=== PATIENT | male | born 1940 | race Caucasian/White ===

== ENCOUNTER 2022-01-23 10:22 | Emergency (ER) | payer OTHER, SELFPAY ==
[2022-01-23] VITALS (23 sets, daily range): BP systolic 75–210; BP diastolic 63–119; PULSE 64–78; RESP 18; TEMP 37; O2SAT 93–98; BMI 31.6
--- NOTE | 2022-01-23 11:04 | CRLHL7_ITS ---
For Patients: As a result of the Century Cures Act, medical imaging exams and procedure reports are released immediately into your electronic medical record. You may view this report before your referring provider. If you have questions, please contact your health care provider. Indication: Chest Pain Comparison: None available Technique: PA and lateral views of the chest Findings: There is hyperinflation and chronic interstitial change with basilar atelectasis and parenchymal scar. There is no dense consolidation, effusion or pneumothorax. The cardiac silhouette is mildly prominent. The bony thorax is grossly intact. Impression: Hyperinflation and chronic interstitial change with minimal basilar atelectasis and/or parenchymal scar. Dictated by Douglas Clifton MD @ 01/23/2022 1:23:25 PM (Electronically Signed)
[2022-01-23] MEDS: ASPIRIN 81 MG TAB.CHEW 162 MG PO ×2 (11:12→11:18)
[2022-01-23 11:19] LABS: Basophils Percent Auto 0.2 % (0.0-3.0); Eosinophils Percent Auto 1.1 % (0.0-7.0); Hematocrit 44.2 % (37.0-53.0); Hemoglobin* 14.4 gm/dL (13.5-17.5); Immature Granulocytes Pct Auto 0.9 %; Lymphocytes Percent Auto 12.2 % (20-44); Mean Corpuscular HGB Conc 33 gm/dL (32-36); Mean Corpuscular Hemoglobin 28 pg (26-34); Mean Corpuscular Volume 87 fL (80-100); Monocytes Percent Auto 8.4 % (0.0-11.0); Neutrophils Percent Auto 77.2 % (42.0-72.0); Platelet Count* 205 K/uL (140-440); Red Blood Count 5.09 m/uL (4.30-5.90); White Blood Count* 13.28 K/uL (4.50-11.00)
[2022-01-23 11:30] LABS: Slide Review Reflex No
[2022-01-23 11:34] LABS: Chloride* 101 mmol/L (96-114)
[2022-01-23 11:35] LABS: Potassium* 4.4 mmol/L (3.6-5.1); Sodium* 135 mmol/L (135-149)
[2022-01-23 11:36] LABS: INR 0.95 (0.91-1.10); Prothrombin Time 13.3 Seconds
[2022-01-23 11:37] LABS: Creatinine* 1.6 mg/dL (0.5-1.5); Est. Creatinine Clearance* 36.75; Estimated Glomerular Filt Rate 43 ml/min; Partial Thromboplastin Time* 32 Seconds (23-33)
[2022-01-23 11:38] LABS: Blood Urea Nitrogen* 44 mg/dL (7-30); Carbon Dioxide* 23 mmol/L (20-32); Glucose* 165 mg/dL (60-115)
[2022-01-23 11:39] LABS: Calcium* 8.9 mg/dL (8.4-10.6); D Dimer Quantitative* 0.33 ug/ml (0.00-0.50)
[2022-01-23 11:46] LABS: NT Pro B Type NatriureticPept* 2930 PG/mL (0-450)
[2022-01-23 11:48] LABS: C Reactive Protein* < 0.5 mg/dL (0.5-1.0)
--- NOTE | 2022-01-23 11:51 | ED_ITS ---
HPI - Chest Pain General Date Seen: 01/23/22 Chief Complaint: Chest Pain Stated Complaint: Chest pain Time Seen by Provider: 01/23/22 10:52 Source: patient, family and EMS Mode of arrival: EMS Limitations: no limitations History of Present Illness HPI narrative: Patient is an 81-year-old gentleman who presents here by EMS with a history of chest pain over the left side of his chest, at approximately 9 9:30 a.m. while he was resting. He notes it more as a sharp, worse when he takes a deep breath in, there is no radiation to his back neck or arm, he did develop some right- sided neck discomfort soon afterwards. He was given 2 nitroglycerines by his home care nurse, and his chest pain went away after approximately 30 minutes. He has a history of chest pain in the past with his last use of nitroglycerin approximately 2-3 weeks ago. He has not had any chest pain with exertion during this time, denies any nausea, diaphoresis associated with this coughing wheezing or shortness of breath. He does have a history of cold, in the last 2 weeks just completed a course of prednisone and doxycycline, on the weekend past. Denies any leg swelling, syncope or any other current condition, feels the neck pain is worse when he moves his neck around but no history of falls injury fevers chills or sweats or other issue. MD complaint: chest pain Pertinent past history: coronary artery disease Onset (ago): hour(s) Timing of current episode: now resolved Prior episodes: Yes Onset: during rest Pain location: substernal and left chest Pain radiation: none Severity: moderate Quality: tightness and sharp Relieving factors: nitroglycerin Exacerbating factors: nothing Context: recent illness Treatment prior to arrival: none Risk Factors Thoracic aortic dissection risk factors: none Pulmonary embolism risk factors: immobilization and morbid obesity Related Data Home Medications Medication Instructions Recorded Confirmed acetaminophen 500 mg tablet mg 01/23/22 albuterol sulfate 90 mcg/actuation inhalation 01/23/22 aerosol inhaler aspirin 325 mg tablet,delayed mg PO 01/23/22 release budesonide-formoterol HFA 160 inhalation 01/23/22 mcg-4.5 mcg/actuation aerosol inhaler (Symbicort) captopril 12.5 mg tablet mg 01/23/22 cyanocobalamin (vitamin B-12) mcg 01/23/22 1,000 mcg tablet (Vitamin B-12) diclofenac sodium 1 % topical gel 1 ea topical .q6 PRN 01/23/22 01/23/22 empagliflozin 25 mg tablet mg 01/23/22 (Jardiance) ferrous sulfate 325 mg (65 mg mg 01/23/22 iron) tablet fluticasone propionate 50 intranasal 01/23/22 mcg/actuation nasal spray,suspension folic acid 1 mg tablet 01/23/22 guaifenesin 100 mg/5 mL oral 200 mg PO Q4H PRN 01/23/22 01/23/22 liquid (Chest Congestion Relief) levetiracetam 500 mg tablet mg PO 01/23/22 (Keppra) lidocaine 5 % topical patch 3 patch topical DAILY 01/23/22 01/23/22 melatonin 3 mg capsule 3 mg PO HS PRN 01/23/22 01/23/22 methimazole 5 mg tablet mg 01/23/22 methocarbamol 500 mg tablet 500 mg PO TID 01/23/22 01/23/22 midodrine 5 mg tablet mg 01/23/22 nitroglycerin 0.4 mg sublingual mg 01/23/22 tablet omeprazole 20 mg capsule,delayed 20 mg PO DAILY 01/23/22 01/23/22 release sodium chloride 0.65 % nasal spray intranasal 01/23/22 aerosol ([place] Nasal) spironolactone 25 mg tablet mg 01/23/22 torsemide 10 mg tablet mg 01/23/22 triamcinolone acetonide 0.1 % 1 applic topical BID 01/23/22 01/23/22 lotion venlafaxine 25 mg tablet mg 01/23/22 Allergies Allergy/AdvReac Type Severity Reaction Status Date / Time adhesive Allergy Verified 01/23/22 10:40 Latex, Natural Rubber Allergy Verified 01/23/22 10:40 lisinopril Allergy Verified 01/23/22 10:40 oxycodone Allergy Verified 01/23/22 10:40 Review of Systems Status of ROS Reports: 10 or more systems reviewed and unremarkable except as noted in History and below [facility] Social History service: Yes Exam Narrative Exam Narrative: Patient is in no apparent distress seen in room 6, he is accompanied by his granddaughter Antoinette, speaking to me in few full sentences, not on oxygen, pupils are equal round reactive to light there is no scleral icterus redness TMs are normal, oropharynx shows decreased air entry bilaterally, no wheezing noted no dullness to percussion the heart sounds are normal, no clicks murmurs or gallops, he appears to be irregularly irregular rhythm. But a normal rate. Abdomen is soft and obese, scars from previous surgery are noted in the midline and left lower quadrant no tenderness to palpation, no organomegaly but a very large abdomen. extremities show 1 to 2+ pitting edema bilaterally, no evidence of any redness swelling otherwise noted, and symmetrical bilaterally moving all extremities independently and well, skin will petechiae rashes, neurologically intact, neck has good mobility he is able to come within 6, extend to within 16, this does exacerbate his discomfort in the right side of his neck no midline tenderness, little bit of decrease in going to the right, verses the left. Carotid upstrokes are equal bilaterally and not tender, JVP is flat. Const Vital Signs, click to edit/add: Vital Signs - 24 hr 01/23/22 10:40 01/23/22 10:34 01/23/22 10:36 Temperature 98.6 F Pulse Rate 78 75 Pulse Rate [Right Pulse Oximeter] 71 Respiratory Rate 18 Blood Pressure 149/63 H Blood Pressure [Right Upper Arm] 149/63 H Pulse Oximetry 95 97 96 Oxygen Delivery Method Room Air 01/23/22 10:37 01/23/22 11:00 01/23/22 11:03 Temperature Pulse Rate 77 74 71 Pulse Rate [Right Pulse Oximeter] Respiratory Rate Blood Pressure 159/90 H Blood Pressure [Right Upper Arm] Pulse Oximetry 97 97 97 Oxygen Delivery Method 01/23/22 11:45 01/23/22 12:00 01/23/22 12:04 Temperature Pulse Rate 67 72 70 Pulse Rate [Right Pulse Oximeter] Respiratory Rate Blood Pressure 170/85 H Blood Pressure [Right Upper Arm] Pulse Oximetry 96 96 94 Oxygen Delivery Method 01/23/22 12:30 01/23/22 12:32 01/23/22 12:33 Temperature Pulse Rate 65 69 70 Pulse Rate [Right Pulse Oximeter] Respiratory Rate Blood Pressure 155/78 H Blood Pressure [Right Upper Arm] Pulse Oximetry 94 94 93 Oxygen Delivery Method 01/23/22 13:00 01/23/22 13:02 01/23/22 13:30 Temperature Pulse Rate 70 68 64 Pulse Rate [Right Pulse Oximeter] Respiratory Rate Blood Pressure 163/96 H Blood Pressure [Right Upper Arm] Pulse Oximetry 93 94 96 Oxygen Delivery Method 01/23/22 13:32 01/23/22 13:33 01/23/22 14:00 Temperature Pulse Rate 67 66 69 Pulse Rate [Right Pulse Oximeter] Respiratory Rate Blood Pressure 157/119 H Blood Pressure [Right Upper Arm] Pulse Oximetry 98 95 96 Oxygen Delivery Method 01/23/22 14:02 01/23/22 14:05 01/23/22 14:30 Temperature Pulse Rate 75 72 Pulse Rate [Right Pulse Oximeter] Respiratory Rate Blood Pressure 75/63 L 210/107 H Blood Pressure [Right Upper Arm] Pulse Oximetry 96 94 Oxygen Delivery Method 01/23/22 14:33 01/23/22 15:04 Temperature Pulse Rate 67 Pulse Rate [Right Pulse Oximeter] Respiratory Rate Blood Pressure 159/108 H 176/96 H Blood Pressure [Right Upper Arm] Pulse Oximetry 96 Oxygen Delivery Method Documenting provider has reviewed patient's vital signs: yes Course Course Hospital Course: I discussed with the patient I have done now 3 sets of troponins x3 over 6 hours, all been negative, D-dimer was normal, his EKG showed no acute changes and he feels markedly improved, I think it would be reasonable at this point to discharge him home, I did offer them admission, but I am not sure anything would come of that given were already 6 hours into the fact that he is negative, I do not think this is unstable angina, as this is occurring at 2 weeks out, this could be related to stomach issues as he was on prednisone relatively recently, I do [facility], he told me that he had a stress test done in June of this year at which was negative. I am not sure what was done as I do not have that documentation went over signs and symptoms of worsening he will return if these occur, they were very comfortable this plan. Vital Signs Vital signs: Initial Vital Signs Pulse Rate 78 01/23/22 10:34 Pulse Oximetry 97 01/23/22 10:34 Vital Signs Pulse Rate 78 01/23/22 10:34 Pulse Oximetry 97 01/23/22 10:34 Temperature 98.6 F 01/23/22 10:40 Pulse Rate 67 01/23/22 14:33 Respiratory Rate 18 01/23/22 10:40 Blood Pressure 176/96 H 01/23/22 15:04 Pulse Oximetry 96 01/23/22 14:33 Oxygen Delivery Method 01/23/22 10:40 MDM - Chest Pain MDM Narrative Medical decision making narrative: During the evaluation of this patient I considered multiple differential diagnosis is. The life-threatening differential diagnosis include coronary disease/OR, pulmonary embolism, pneumothorax, pneumonia, and aortic dissection. Other differential diagnosis included but were not limited to pericarditis, myocarditis, chest wall pain, GERD, esophageal rupture, rib fracture contusion, pleurisy, as well as other etiologies. Medical Records Data Attestation: I reviewed the patient's medical records. Lab Data Attestation: I reviewed the patient's lab results. Labs: Lab Results 01/23/22 01/23/22 01/23/22 Range/Units 11:04 11:13 11:13 WBC 13.28 H (4.50-11.00) K/uL RBC 5.09 (4.30-5.90) m/uL Hgb 14.4 (13.5-17.5) gm/dL Hct 44.2 (37.0-53.0) % MCV 87 (80-100) fL MCH 28 (26-34) pg MCHC 33 (32-36) gm/dL RDW Coeff of Gilbert 15.0 (11.5-15.5) % Plt Count 205 (140-440) K/uL Neut % (Auto) 77.2 H (42.0-72.0) % Lymph % (Auto) 12.2 L (20-44) % [place] % (Auto) 8.4 (0.0-11.0) % Eos % (Auto) 1.1 (0.0-7.0) % Baso % (Auto) 0.2 (0.0-3.0) % Neut # (Auto) 10.30 H (1.7-7.0) K/uL Lymph # (Auto) 1.60 (0.90-2.90) K/uL [place] # (Auto) 1.10 H (0.00-0.90) K/UL Eos # (Auto) 0.10 (0.00-0.50) K/uL Baso # (Auto) 0.00 (0.00-0.30) K/uL Abs Immat Gran (auto) 0.10 (0.00-0.30) K/uL Imm/Tot Granulo (auto) 0.9 % INR 0.95 (0.91-1.10) APTT 32 (23-33) Seconds D-Dimer Quant (PE/DVT) 0.33 (0.00-0.50) ug/ml Sodium (135-149) mmol/L Potassium (3.6-5.1) mmol/L Chloride (96-114) mmol/L Carbon Dioxide (20-32) mmol/L BUN (7-30) mg/dL Creatinine (0.5-1.5) mg/dL Estimated Creat Clear Estimated GFR ml/min Glucose (60-115) mg/dL Calcium (8.4-10.6) mg/dL C-Reactive Protein (0.5-1.0) mg/dL NT-Pro-B Natriuret Pep (0-450) PG/mL SARS-CoV-2 (PCR) Negative SARS-CoV-2 (Negative) Influenza Type A (PCR) Negative PCR FLU A (Negative) Influenza Type B (PCR) Negative PCR FLU B (Negative) RSV (PCR) Negative PCR RSV (Negative) POC Troponin I (0.01-0.04) ng/ml 01/23/22 01/23/22 01/23/22 Range/Units 11:13 11:13 13:21 WBC (4.50-11.00) K/uL RBC (4.30-5.90) m/uL Hgb (13.5-17.5) gm/dL Hct (37.0-53.0) % MCV (80-100) fL MCH (26-34) pg MCHC (32-36) gm/dL RDW Coeff of Gilbert (11.5-15.5) % Plt Count (140-440) K/uL Neut % (Auto) (42.0-72.0) % Lymph % (Auto) (20-44) % [place] % (Auto) (0.0-11.0) % Eos % (Auto) (0.0-7.0) % Baso % (Auto) (0.0-3.0) % Neut # (Auto) (1.7-7.0) K/uL Lymph # (Auto) (0.90-2.90) K/uL [place] # (Auto) (0.00-0.90) K/UL Eos # (Auto) (0.00-0.50) K/uL Baso # (Auto) (0.00-0.30) K/uL Abs Immat Gran (auto) (0.00-0.30) K/uL Imm/Tot Granulo (auto) % INR (0.91-1.10) APTT (23-33) Seconds D-Dimer Quant (PE/DVT) (0.00-0.50) ug/ml Sodium 135 (135-149) mmol/L Potassium 4.4 (3.6-5.1) mmol/L Chloride 101 (96-114) mmol/L Carbon Dioxide 23 (20-32) mmol/L BUN 44 H (7-30) mg/dL Creatinine 1.6 H (0.5-1.5) mg/dL Estimated Creat Clear 36.75 Estimated GFR 43 ml/min Glucose 165 H (60-115) mg/dL Calcium 8.9 (8.4-10.6) mg/dL C-Reactive Protein < 0.5 L (0.5-1.0) mg/dL NT-Pro-B Natriuret Pep 2930 H (0-450) PG/mL SARS-CoV-2 (PCR) (Negative) Influenza Type A (PCR) (Negative) Influenza Type B (PCR) (Negative) RSV (PCR) (Negative) POC Troponin I 0.00 L 0.00 L (0.01-0.04) ng/ml 01/23/22 Range/Units 15:15 WBC (4.50-11.00) K/uL RBC (4.30-5.90) m/uL Hgb (13.5-17.5) gm/dL Hct (37.0-53.0) % MCV (80-100) fL MCH (26-34) pg MCHC (32-36) gm/dL RDW Coeff of Gilbert (11.5-15.5) % Plt Count (140-440) K/uL Neut % (Auto) (42.0-72.0) % Lymph % (Auto) (20-44) % [place] % (Auto) (0.0-11.0) % Eos % (Auto) (0.0-7.0) % Baso % (Auto) (0.0-3.0) % Neut # (Auto) (1.7-7.0) K/uL Lymph # (Auto) (0.90-2.90) K/uL [place] # (Auto) (0.00-0.90) K/UL Eos # (Auto) (0.00-0.50) K/uL Baso # (Auto) (0.00-0.30) K/uL Abs Immat Gran (auto) (0.00-0.30) K/uL Imm/Tot Granulo (auto) % INR (0.91-1.10) APTT (23-33) Seconds D-Dimer Quant (PE/DVT) (0.00-0.50) ug/ml Sodium (135-149) mmol/L Potassium (3.6-5.1) mmol/L Chloride (96-114) mmol/L Carbon Dioxide (20-32) mmol/L BUN (7-30) mg/dL Creatinine (0.5-1.5) mg/dL Estimated Creat Clear Estimated GFR ml/min Glucose (60-115) mg/dL Calcium (8.4-10.6) mg/dL C-Reactive Protein (0.5-1.0) mg/dL NT-Pro-B Natriuret Pep (0-450) PG/mL SARS-CoV-2 (PCR) (Negative) Influenza Type A (PCR) (Negative) Influenza Type B (PCR) (Negative) RSV (PCR) (Negative) POC Troponin I 0.00 L (0.01-0.04) ng/ml Imaging Data Chest x-ray: Attestation: I have reviewed the pertinent imaging results. My impression: Negative chest x-ray Radiologist's impression: atient: BRAVO BRUMFIELD Facility:?[facility] Patient ID:?[id number] Site Patient ID:?[id number]. Site :?[id number] Study:?CT Spine Cervical -01/23/2022 12:27:38 PM Ordering Physician:Ina Branch Final Report: INDICATION: Fall with neck pain. TECHNIQUE: CT cervical spine without contrast. COMPARISON: None. FINDINGS: Vertebrae: Alignment is normal. There are no fractures or suspicious bony lesions. Discs and facet joints: There are degenerative disc changes most severe at C4-5 and C5-6. There are multilevel degenerative changes in the facets. Extraspinal findings: Paraspinous soft tissues are unremarkable. IMPRESSION: 1. No sign of acute injury. 2. Multilevel degenerative spondylosis. Please note that all CT scans at this facility use dose modulation, iterative reconstruction, and/or weight-based dosing when appropriate to reduce radiation dose to as low as reasonably achievable. Dictated by Jacky Arvizu MD @ 01/23/2022 1:52:26 PM (Electronic Signature) Patient: BRAVO BRUMFIELD Facility:?[facility] Patient ID:?[id number] Site Patient ID:?[id number]. Site :?[id number] Study:?XRay Chest 2 VIEWS-01/23/2022 11:51:59 AM Ordering Physician:Ina Branch Final Report: Indication: Chest Pain Comparison: None available Technique: PA and lateral views of the chest Findings: There is hyperinflation and chronic interstitial change with basilar atelectasis and parenchymal scar. There is no dense consolidation, effusion or pneumothorax. The cardiac silhouette is mildly prominent. The bony thorax is grossly intact. Impression: Hyperinflation and chronic interstitial change with minimal basilar atelectasis and/or parenchymal scar. Dictated by Douglas Clifton MD @ 01/23/2022 1:23:25 PM (Electronic Signature) ECG Data Attestation: I personally reviewed and interpreted this ECG as follows: ECG interpretation date: 01/23/22 ECG interpretation time: 11:58 Prior ECG tracings: available for review Interpretation: EKG shows atrial fibrillation with controlled ventricular response at 74, QRS, QT and intervals are all normal, there is no acute ST wave changes suggestive of ischemia and compared to other EKGs no change. Discharge Plan Discharge Clinical Impression: Chest pain Patient Disposition: Home w/ Parent or Adult Condition: Stable Instructions: Chest Pain (DC) Additional Instructions: Home rest continue use her nitroglycerin as needed, recommend follow-up if after 1 or 2 pills you do not have resolution of her chest pain, follow-up with primary care within the next week, return here if increasing chest pain shortness of breath, or any atypical features Prescriptions: No Action levetiracetam [Keppra] 500 mg tablet PO Label Comments: 1 tablet by mouth twice a day venlafaxine 25 mg tablet Label Comments: 1 tablet by mouth three times a day midodrine 5 mg tablet Label Comments: 1 tablet by mouth twice a day cyanocobalamin (vitamin B-12) [Vitamin B-12] 1,000 mcg tablet Label Comments: 1 tablet by mouth once a day torsemide 10 mg tablet Label Comments: 1 tablet by mouth once a day spironolactone 25 mg tablet Label Comments: 12.5 mg by mouth once a day captopril 12.5 mg tablet Label Comments: 6.25 mg by mouth at bedtime aspirin 325 mg tablet,delayed release (DR/EC) PO Label Comments: 1 tablet by mouth once a day ferrous sulfate 325 mg (65 mg iron) tablet Label Comments: 1 tablet by mouth once a day nitroglycerin 0.4 mg tablet, sublingual Label Comments: 1 tablet under tongue as needed methimazole 5 mg tablet Label Comments: 1 tablet by mouth once a day folic acid 1 mg tablet Label Comments: 1 tablet by mouth once a day albuterol sulfate 90 mcg/actuation HFA aerosol inhaler INHALATION Label Comments: 2 puff using inhaler every four hours as needed fluticasone propionate 50 mcg/actuation spray,suspension INTRANASAL Label Comments: 1 spray into both nostrils once a day [place] Nasal 0.65 % aerosol,spray INTRANASAL Label Comments: 1 spray into both nostrils twice a day budesonide-formoterol [Symbicort] 160-4.5 mcg/actuation HFA aerosol inhaler INHALATION Label Comments: 2 puff using inhaler twice a day Jardiance 25 mg tablet Label Comments: 12.5 mg by mouth once a day omeprazole 20 mg capsule,delayed release(DR/EC) 20 mg PO DAILY methocarbamol 500 mg tablet 500 mg PO TID lidocaine 5 % adhesive patch,medicated 3 patch topical DAILY Rx Instructions: leave on most painful area for up to 12 hrs melatonin 3 mg capsule 3 mg PO HS PRN acetaminophen 500 mg tablet Label Comments: 1000 mg by mouth three times a day triamcinolone acetonide 0.1 % lotion 1 applic topical BID diclofenac sodium 1 % gel 1 ea topical .q6 PRN Rx Instructions: apply to single elbow, wrist or hand; for hand includes palm/fingers/back of hand guaifenesin [Chest Congestion Relief] 100 mg/5 mL liquid 200 mg PO Q4H PRN Follow Up/Referrals: Provider,Not a Local [Primary Care Provider] - Stand Alone Forms: [employer] Info Instructions
[2022-01-23 11:57] LABS: PCR FLU A Negative PCR FLU A (Negative); PCR FLU B Negative PCR FLU B (Negative); PCR RSV Negative PCR RSV (Negative)
[2022-01-23 11:58] LABS: SARS PCR* Negative SARS-CoV-2 (Negative)
--- NOTE | 2022-01-23 11:59 | CRLHL7_ITS ---
For Patients: As a result of the Century Cures Act, medical imaging exams and procedure reports are released immediately into your electronic medical record. You may view this report before your referring provider. If you have questions, please contact your health care provider. INDICATION: Fall with neck pain. TECHNIQUE: CT cervical spine without contrast. COMPARISON: None. FINDINGS: Vertebrae: Alignment is normal. There are no fractures or suspicious bony lesions. Discs and facet joints: There are degenerative disc changes most severe at C4-5 and C5-6. There are multilevel degenerative changes in the facets. Extraspinal findings: Paraspinous soft tissues are unremarkable. IMPRESSION: 1. No sign of acute injury. 2. Multilevel degenerative spondylosis. Please note that all CT scans at this facility use dose modulation, iterative reconstruction, and/or weight-based dosing when appropriate to reduce radiation dose to as low as reasonably achievable. Dictated by Jacky Arvizu MD @ 01/23/2022 1:52:26 PM (Electronically Signed)
== END 2022-01-23 16:10 | disposition home or self-care (01) ==
PROVIDERS: Emergency Provider Family Medicine
DX: R07.9 Chest pain, unspecified (principal)
CPT/HCPCS: 36415; 71046; 72125; 80048; 83880; 85025; 85379; 85610; 85730; 86140; 87502; 87634; 87635; 93005; 99285; A9270

== ENCOUNTER 2022-04-01 13:46 | Inpatient (IN) | payer OTHER, SELFPAY ==
[2022-04-01] VITALS (21 sets, daily range): BP systolic 161–201; BP diastolic 82–111; PULSE 63–82; RESP 18–24; TEMP 36.2–36.6; O2SAT 91–97; BMI 32.4; BMI 33.8
--- NOTE | 2022-04-01 14:16 | CRLHL7_ITS ---
For Patients: As a result of the Century Cures Act, medical imaging exams and procedure reports are released immediately into your electronic medical record. You may view this report before your referring provider. If you have questions, please contact your health care provider. INDICATION: Shortness of breath. TECHNIQUE: Chest 1 view. COMPARISON: 23 January 2022 FINDINGS: Cardiovascular and mediastinum: Heart size and vasculature are normal in caliber and appearance. Mediastinum is within normal limits. Lungs and pleural space: Lungs are clear. No sign of infiltrate or mass. No sign of pleural effusion. No pneumothorax. Bones and soft tissues: No significant findings. IMPRESSION: Unremarkable chest. Dictated by [place] MD @ 04/01/2022 3:06:06 PM (Electronically Signed)
[2022-04-01 14:35] LABS: Lactate* 2.7 mmol/L (0.5-1.9)
[2022-04-01 14:37] LABS: Basophils Absolute Auto 0.04 K/uL (0.00-0.30); Basophils Percent Auto 0.4 % (0.0-3.0); Eosinophils Absolute Auto 0.18 K/uL (0.00-0.50); Eosinophils Percent Auto 1.9 % (0.0-7.0); Hematocrit 41.7 % (37.0-53.0); Hemoglobin* 13.9 gm/dL (13.5-17.5); Immature Granulocytes Abs Auto 0.08 K/uL (0.00-0.30); Immature Granulocytes Pct Auto 0.8 %; Lymphocytes Percent Auto 12.6 % (20-44); Mean Corpuscular HGB Conc 33 gm/dL (32-36); Mean Corpuscular Hemoglobin 29 pg (26-34); Mean Corpuscular Volume 88 fL (80-100); Monocytes Percent Auto 9.9 % (0.0-11.0); Neutrophils Percent Auto 74.4 % (42.0-72.0); Platelet Count* 241 K/uL (140-440); RDW Coefficient of Variation % 13.3 % (11.5-15.5); Red Blood Count 4.75 m/uL (4.30-5.90); White Blood Count* 9.51 K/uL (4.50-11.00)
[2022-04-01 14:45] LABS: Slide Review Reflex No
--- NOTE | 2022-04-01 14:46 | ED_ITS ---
HPI - General Adult General Chief complaint: Chest Pain Stated complaint: Chest Pain Time Seen by Provider: 04/01/22 13:57 Source: patient Mode of arrival: ambulatory Limitations: no limitations History of Present Illness HPI narrative: 81-year-old male coming in today complaining of shortness of breath and weakness that all started yesterday. Patient denies any fevers or chills. No nausea or vomiting. He has been eating normally. Slept well last night. Patient states that he feels very short of breath at rest and certainly gets worse with physical activity. He states that he can get from his chair to the door of his room without feeling significantly short of breath. He denies any abdominal discomfort. He denies difficulty lying flat. Denies any swelling of his extremities. He states that this morning he suffered an episode of chest pain which resolved with sublingual nitro that he was given by the EMT. He is currently pain free. He denies any focal neurologic deficits. He is also quite concerned because his blood pressure has been quite elevated for several days now. He states he is usually in the 130s to 140 systolic but has been consistently above 180 into 200s systolic. His past medical history is significant for tinnitus, hyperlipidemia, BPH, bipolar disorder, chronic back pain, depression, anxiety, hypertension, coronary artery disease, congestive heart failure, neuropathy Related Data Home Medications Medication Instructions Recorded Confirmed acetaminophen 500 mg tablet mg 01/23/22 albuterol sulfate 90 mcg/actuation inhalation 01/23/22 aerosol inhaler aspirin 325 mg tablet,delayed mg PO 01/23/22 release budesonide-formoterol HFA 160 inhalation 01/23/22 mcg-4.5 mcg/actuation aerosol inhaler (Symbicort) captopril 12.5 mg tablet mg 01/23/22 cyanocobalamin (vitamin B-12) mcg 01/23/22 1,000 mcg tablet (Vitamin B-12) diclofenac sodium 1 % topical gel 1 ea topical .q6 PRN 01/23/22 01/23/22 empagliflozin 25 mg tablet mg 01/23/22 (Jardiance) ferrous sulfate 325 mg (65 mg mg 01/23/22 iron) tablet fluticasone propionate 50 intranasal 01/23/22 mcg/actuation nasal spray,suspension folic acid 1 mg tablet 01/23/22 guaifenesin 100 mg/5 mL oral 200 mg PO Q4H PRN 01/23/22 01/23/22 liquid (Chest Congestion Relief) levetiracetam 500 mg tablet mg PO 01/23/22 (Keppra) lidocaine 5 % topical patch 3 patch topical DAILY 01/23/22 01/23/22 melatonin 3 mg capsule 3 mg PO HS PRN 01/23/22 01/23/22 methimazole 5 mg tablet mg 01/23/22 methocarbamol 500 mg tablet 500 mg PO TID 01/23/22 01/23/22 midodrine 5 mg tablet mg 01/23/22 nitroglycerin 0.4 mg sublingual mg 01/23/22 tablet omeprazole 20 mg capsule,delayed 20 mg PO DAILY 01/23/22 01/23/22 release sodium chloride 0.65 % nasal spray intranasal 01/23/22 aerosol ([place] Nasal) spironolactone 25 mg tablet mg 01/23/22 torsemide 10 mg tablet mg 01/23/22 triamcinolone acetonide 0.1 % 1 applic topical BID 01/23/22 01/23/22 lotion venlafaxine 25 mg tablet mg 01/23/22 Allergies Allergy/AdvReac Type Severity Reaction Status Date / Time adhesive Allergy Verified 01/23/22 10:40 Latex, Natural Rubber Allergy Verified 01/23/22 10:40 lisinopril Allergy Verified 01/23/22 10:40 oxycodone Allergy Verified 01/23/22 10:40 Review of Systems Status of ROS: Reports: 10 or more systems reviewed and unremarkable except as noted in History and below [facility] Social History Smoking Status: Former smoker How often do you have a drink containing alcohol: never AUDIT-C Alcohol total score: 0 Non-prescribed substance use: denies use service: Yes Exam Narrative: Exam Narrative: Overweight, elderly patient in no acute distress. Alert and oriented. Answers questions appropriately. Mood and affect are appropriate. Thoughts are goal oriented and rational. No tangential or magical thinking noted. Patient does need to catch his breath between words when completing 1 sentence. HEENT: Normocephalic atraumatic. Pupils are equally round reactive to light. Extraocular muscles are intact. Conjunctivae are moist without any icterus noted. Moist mucous membranes. Posterior pharynx is normal. Neck is soft without any lymphadenopathy or thyromegaly. No masses are appreciated. Cardiovascular: Heart is regular rate and rhythm S1 and S2 are present without any murmurs. Lungs: Clear to auscultation bilaterally no wheezes rhonchi or rales are appreciated. Patient takes deep breaths without any discomfort. Abdomen: Protuberant and soft. He does have a large rectus diastasis as well as an umbilical hernia. Nontender. Extremities: Bilateral lower extremities are without edema. Skin: Well perfused without any obvious rashes. Strength is 5/5 of the upper and lower extremities. Reflexes are 2+ and symmetric at the knees. Cranial nerves 3-12 are normal. [id number] is normal. There is no nystagmus either horizontally or vertically. Const: Vital Signs, click to edit/add: Vital Signs - 24 hr 04/01/22 13:56 04/01/22 14:28 04/01/22 14:30 Temperature 97.1 F L Pulse Rate 74 77 Pulse Rate [Pulse Oximeter] 70 Respiratory Rate 18 Blood Pressure Blood Pressure [Le ft Upper Arm] 187/106 H Pulse Oximetry 96 96 96 Oxygen Delivery Me thod Room Air 04/01/22 14:32 04/01/22 15:00 Temperature Pulse Rate 72 63 Pulse Rate [Pulse Oximeter] Respiratory Rate Blood Pressure 175/106 H Blood Pressure [Le ft Upper Arm] Pulse Oximetry 97 96 Oxygen Delivery Me thod Course Course Hospital Course: EKG, read by me, shows atrial fibrillation with a pulse of 71. I did speak with the patient and his daughter about atrial fibrillation and they stated that he has been in this before and that he pops in and out of it. He is not on anticoagulation for this and generally cannot tell when he is in AFib. Lab work showing an unremarkable CBC, slight hyponatremia with a sodium of 134, creatinine was 1.6 but appears to be at his baseline, lactate elevated at 2.7. Normal troponin CRP, negative triple swab. Chest x-ray unremarkable, read by me. Upon further discussion with patient's daughter she states that he required 2 people to get him into the gurney which is unusual for him. He tells me that he feels much weaker than normal. Vital Signs Vital signs: Initial Vital Signs Temperature 97.1 F L 04/01/22 13:56 Temperature Source Temporal Artery Scan 04/01/22 13:56 Pulse Rate 70 04/01/22 13:56 Respiratory Rate 18 04/01/22 13:56 Blood Pressure 187/106 H 04/01/22 13:56 Blood Pressure Mean 133 04/01/22 13:56 Blood Pressure Position Supine 04/01/22 13:56 Pulse Oximetry 96 04/01/22 13:56 Oxygen Delivery Method 04/01/22 13:56 Vital Signs Temperature 97.1 F L 04/01/22 13:56 Pulse Rate 70 04/01/22 13:56 Respiratory Rate 18 04/01/22 13:56 Blood Pressure 187/106 H 04/01/22 13:56 Pulse Oximetry 96 04/01/22 13:56 Oxygen Delivery Method 04/01/22 13:56 Temperature 97.1 F L 04/01/22 13:56 Pulse Rate 63 04/01/22 15:00 Respiratory Rate 18 04/01/22 13:56 Blood Pressure 175/106 H 04/01/22 14:32 Pulse Oximetry 96 04/01/22 15:00 Oxygen Delivery Method 04/01/22 13:56 Medical Decision Making MDM Narrative Medical decision making narrative: 81-year-old male with weakness, shortness of breath. Patient does live alone and I do not feel that is safe for him to go home at this time given the amount of weakness he is experiencing. Patient be admitted for further management. Lab Data Labs: Lab Results 04/01/22 04/01/22 04/01/22 Range/Units 14:28 14:28 14:28 WBC 9.51 (4.50-11.00) K/uL RBC 4.75 (4.30-5.90) m/uL Hgb 13.9 (13.5-17.5) gm/dL Hct 41.7 (37.0-53.0) % MCV 88 (80-100) fL MCH 29 (26-34) pg MCHC 33 (32-36) gm/dL RDW Coeff of Gilbert 13.3 (11.5-15.5) % Plt Count 241 (140-440) K/uL Neut % (Auto) 74.4 H (42.0-72.0) % Lymph % (Auto) 12.6 L (20-44) % [place] % (Auto) 9.9 (0.0-11.0) % Eos % (Auto) 1.9 (0.0-7.0) % Baso % (Auto) 0.4 (0.0-3.0) % Neut # (Auto) 7.10 H (1.7-7.0) K/uL Lymph # (Auto) 1.20 (0.90-2.90) K/uL [place] # (Auto) 0.90 (0.00-0.90) K/UL Eos # (Auto) 0.18 (0.00-0.50) K/uL Baso # (Auto) 0.04 (0.00-0.30) K/uL Sodium 134 L (135-149) mmol/L Potassium 4.6 (3.6-5.1) mmol/L Chloride 101 (96-114) mmol/L Carbon Dioxide 23 (20-32) mmol/L BUN 38 H (7-30) mg/dL Creatinine 1.6 H (0.5-1.5) mg/dL Estimated Creat Clear 36.75 Estimated GFR 43 ml/min Glucose 153 H (60-115) mg/dL Lactate 2.7 H (0.5-1.9) mmol/L Calcium 8.7 (8.4-10.6) mg/dL Total Bilirubin 0.5 (0.1-1.5) mg/dL Direct Bilirubin 0.2 (0.0-0.5) mg/dL AST 23 (12-35) U/L ALT 24 (4-50) U/L Alkaline Phosphatase 95 (40-150) U/L Troponin I < 0.01 L (0.01-0.04) ng/mL C-Reactive Protein < 0.5 L (0.5-1.0) mg/dL NT-Pro-B Natriuret Pep 4980 pg/mL Total Protein 7.1 (6.0-8.3) g/dL Albumin 4.4 (3.3-5.0) g/dL SARS-CoV-2 (PCR) (Negative) Influenza Type A (PCR) (Negative) Influenza Type B (PCR) (Negative) RSV (PCR) (Negative) 04/01/22 Range/Units 14:28 WBC (4.50-11.00) K/uL RBC (4.30-5.90) m/uL Hgb (13.5-17.5) gm/dL Hct (37.0-53.0) % MCV (80-100) fL MCH (26-34) pg MCHC (32-36) gm/dL RDW Coeff of Gilbert (11.5-15.5) % Plt Count (140-440) K/uL Neut % (Auto) (42.0-72.0) % Lymph % (Auto) (20-44) % [place]eman % (Auto) (0.0-11.0) % Eos % (Auto) (0.0-7.0) % Baso % (Auto) (0.0-3.0) % Neut # (Auto) (1.7-7.0) K/uL Lymph # (Auto) (0.90-2.90) K/uL [place]eman # (Auto) (0.00-0.90) K/UL Eos # (Auto) (0.00-0.50) K/uL Baso # (Auto) (0.00-0.30) K/uL Sodium (135-149) mmol/L Potassium (3.6-5.1) mmol/L Chloride (96-114) mmol/L Carbon Dioxide (20-32) mmol/L BUN (7-30) mg/dL Creatinine (0.5-1.5) mg/dL Estimated Creat Clear Estimated GFR ml/min Glucose (60-115) mg/dL Lactate (0.5-1.9) mmol/L Calcium (8.4-10.6) mg/dL Total Bilirubin (0.1-1.5) mg/dL Direct Bilirubin (0.0-0.5) mg/dL AST (12-35) U/L ALT (4-50) U/L Alkaline Phosphatase (40-150) U/L Troponin I (0.01-0.04) ng/mL C-Reactive Protein (0.5-1.0) mg/dL NT-Pro-B Natriuret Pep pg/mL Total Protein (6.0-8.3) g/dL Albumin (3.3-5.0) g/dL SARS-CoV-2 (PCR) Negative SARS-CoV-2 (Negative) Influenza Type A (PCR) Negative PCR FLU A (Negative) Influenza Type B (PCR) Negative PCR FLU B (Negative) RSV (PCR) Negative PCR RSV (Negative) Imaging Data Chest x-ray: Attestation: I have reviewed the pertinent imaging results. Radiologist's impression: Chest 1 view. COMPARISON: 23 January 2022 FINDINGS: Cardiovascular and mediastinum: Heart size and vasculature are normal in caliber and appearance. Mediastinum is within normal limits. Lungs and pleural space: Lungs are clear. No sign of infiltrate or mass. No sign of pleural effusion. No pneumothorax. Bones and soft tissues: No significant findings. IMPRESSION: Unremarkable chest. ECG Data Attestation: I personally reviewed and interpreted this ECG as follows: Discharge Plan Discharge Clinical Impression: Weakness Patient Disposition: Admitted As Inpatient
[2022-04-01] MEDS: 0.9 % SODIUM CHLORIDE 1000 ml 1,000 ML 500 ML IV (15:00)
[2022-04-01 15:01] LABS: Albumin* 4.4 g/dL (3.3-5.0); Chloride* 101 mmol/L (96-114); Sodium* 134 mmol/L (135-149)
[2022-04-01 15:02] LABS: Potassium* 4.6 mmol/L (3.6-5.1)
[2022-04-01 15:04] LABS: Aspartate Amino Transferase* 23 U/L (12-35); Bilirubin Direct* 0.2 mg/dL (0.0-0.5); Bilirubin Total* 0.5 mg/dL (0.1-1.5); Carbon Dioxide* 23 mmol/L (20-32); Creatinine* 1.6 mg/dL (0.5-1.5); Est. Creatinine Clearance* 36.75; Estimated Glomerular Filt Rate 43 ml/min; Total Protein* 7.1 g/dL (6.0-8.3)
[2022-04-01 15:05] LABS: Alanine Aminotransferase* 24 U/L (4-50); Alkaline Phosphatase* 95 U/L (40-150); Blood Urea Nitrogen* 38 mg/dL (7-30); Calcium* 8.7 mg/dL (8.4-10.6); Glucose* 153 mg/dL (60-115)
[2022-04-01 15:11] LABS: C Reactive Protein* < 0.5 mg/dL (0.5-1.0)
[2022-04-01 15:13] LABS: PCR FLU A Negative PCR FLU A (Negative); PCR FLU B Negative PCR FLU B (Negative); PCR RSV Negative PCR RSV (Negative)
[2022-04-01 15:14] LABS: NT Pro B Type NatriureticPept* 4980 pg/mL
[2022-04-01 15:15] LABS: SARS PCR* Negative SARS-CoV-2 (Negative)
[2022-04-01 15:17] LABS: Troponin I* < 0.01 ng/mL (0.01-0.04)
[2022-04-01] MEDS: ACETAMINOPHEN 500 MG TABLET 1000 MG PO ×2 (15:25→20:34)
--- NOTE | 2022-04-01 15:36 | ED.NURSE ---
pt c/o headache, neck pain, hand pain and leg pain now. denies cp. states I have pain everywhere suddenly, I don't feel right, I don't know what is going on. dr. mauricio in seeing pt, plan to admit pt.
[2022-04-01 15:49] LABS: Appearance Urine Clear (Clear); Bilirubin Urine Negative (Negative); Blood Urine Negative (Negative); Color Urine Yellow (Yellow); Glucose Urine 2+ (Negative); Ketones Urine Negative (Negative); Leukocyte Esterase Urine Negative (Negative); Nitrite Urine Negative (Negative); Protein Urine Negative (Negative); Urobilinogen Urine 0.2 (0.2-1.0)
[2022-04-01 15:51] LABS: Erythrocyte SedimentationRate* 7 mm/hr (2-15)
[2022-04-01 16:07] LABS: RBC Urine 0-2 (0-2); WBC Urine 0-2 (0-5)
--- NOTE | 2022-04-01 16:59 | ED.NURSE ---
report given, pt transferred to [facility] on heart monitor to room 245
--- NOTE | 2022-04-01 17:33 | P.IMHP_ITS ---
Hospitalist- H&P: HPI History of Present Illness Date Seen: 04/01/22 Chief complaint: Chest Pain Narrative: Robert Patricia is a 81 year old male who presented to the emergency room today for a 2 day history of feeling poorly. Patient notes shortness of breath over the past 1-2 days, in addition to weakness. This morning, he checked his blood pressure at home and SBP was >200. He was concerned with this number so he called the [place] nurses line, who recommended an ER visit. Kashif has not had any documented fevers, has had intermittent diaphoresis. He also notes diffuse achiness in his low back and bilateral hips. No abdominal pain, no melena. ER course and findings: - on arrival to his home, final inspector paper gave him sublingual nitrogen x1 for chest pain. Chest pain resolved upon arrival to the ER - headache on arrival, resolved with Tylenol - rate controlled a fib on EKG (known history of paroxysmal AFib) - lactate 2.7, BNP 4900, negative troponin, negative CRP, negative D-dimer, normal CK Patient's medical history updated below. Notably, he was admitted to our hospital in August of 2021 for falls at home; subsequently had a tonic clonic seizure and coded. He was placed on comfort cares, but improved spontaneously and eventually discharged back to [facility], where he has been doing quite well. He has a home health nurse who sets up his medications for him. He is minimally ambulatory; has an electric scooter. Kashif is with 3 adult children; daughter Georgina would be medical decision maker if needed. He does not desire aggressive intervention in case of cardiorespiratory demise; but does request full code status until his children could be present to say goodbye to him. Review of Systems Narrative: - has had intermittent nights sweats and feeling chilled - daughter Georgina notes that over the past few days, her dad's face has seemed more red - Georgina has also noted more pronounced intermittent tremors of bilateral upper extremities, which patient has had in the past - patient's methimazole was discontinued in the fall of 2021; he subsequently had symptoms of hyperthyroidism (tremors, poor temperature regulation) and methimazole was restarted - dry irritated skin of bilateral upper extremities - no melena or BRBPR [facility] Medical History (Updated 04/01/22 @ 20:01 by Angelita Portillo MD) BPH (benign prostatic hyperplasia) Carotid stenosis CHF (congestive heart failure) COPD (chronic obstructive pulmonary disease) Essential hypertension Hyperthyroidism Non-insulin dependent diabetes mellitus Paroxysmal A-fib Seizure Stage III chronic kidney disease Surgical History (Updated 04/01/22 @ 17:49 by Angelita Portillo MD) H/O hernia repair History of carotid angioplasty History of intestinal surgery Social History (Updated 04/01/22 @ 19:35 by Angelita Portillo MD) Narrative: , 3 adult children. Daughter Georgina is in [place] and medical decision maker. Lives at [facility] in [place]. Uses electric scooter for long distance movement. Has a nurse who sets up his daily medications. Retired and [employer]. Would only want to be Full Code long enough to have his children see him to say Goodbye, does not otherwise desire aggressive Full Code status. Quit smoking >50 years ago, no ETOH use. Highest level of school completed/degree received: high school graduate Smoking Status: Former smoker How often do you have a drink containing alcohol: never AUDIT-C Alcohol total score: 0 Non-prescribed substance use: denies use Caffeine: No service: Yes Meds Home Medications and Allergies Home Medications Medication Instructions Recorded Confirmed Type acetaminophen 500 mg tablet 1,000 mg PO TID 01/23/22 04/01/22 History albuterol sulfate 90 mcg/actuation 2 puff inhalation Q4H PRN 01/23/22 04/01/22 History aerosol inhaler bronchospasm aspirin 325 mg tablet,delayed 325 mg PO DAILY 01/23/22 04/01/22 History release budesonide-formoterol HFA 160 2 puff inhalation Q12H 01/23/22 04/01/22 History mcg-4.5 mcg/actuation aerosol inhaler (Symbicort) captopril 12.5 mg tablet 6.25 mg PO HS 01/23/22 04/01/22 History cyanocobalamin (vitamin B-12) 1,000 mcg PO DAILY 01/23/22 04/01/22 History 1,000 mcg tablet (Vitamin B-12) diclofenac sodium 1 % topical gel 1 ea topical .q6 PRN 01/23/22 04/01/22 History empagliflozin 25 mg tablet 12.5 mg PO DAILY 01/23/22 04/01/22 History (Jardiance) ferrous sulfate 325 mg (65 mg 325 mg PO DAILY 01/23/22 04/01/22 History iron) tablet fluticasone propionate 50 1 spray intranasal DAILY 01/23/22 04/01/22 History mcg/actuation nasal spray,suspension folic acid 1 mg tablet 1 mg PO DAILY 01/23/22 04/01/22 History levetiracetam 500 mg tablet 500 mg PO Q12H 8 am and 8 pm 01/23/22 04/01/22 History (Keppra) lidocaine 5 % topical patch 1 patch topical DAILY 01/23/22 04/01/22 History methimazole 5 mg tablet 5 mg PO DAILY 01/23/22 04/01/22 History midodrine 5 mg tablet 5 mg PO Q4H 01/23/22 04/01/22 History nitroglycerin 0.4 mg sublingual 0.8 mg sublingual Q5M PRN 01/23/22 04/01/22 History tablet sodium chloride 0.65 % nasal spray 1 spray intranasal Q12H 01/23/22 04/01/22 History aerosol ([place] Nasal) spironolactone 25 mg tablet 12.5 mg PO DAILY 01/23/22 04/01/22 History torsemide 10 mg tablet 10 mg PO DAILY 01/23/22 04/01/22 History triamcinolone acetonide 0.1 % 1 applic topical BID 01/23/22 04/01/22 History lotion venlafaxine 25 mg tablet 25 mg PO DAILY 01/23/22 04/01/22 History Home Medication Comments: Daughter Georgina brought in med list; this is not entirely current. It is unclear if he is back on Eliquis as an anticoagulant for AFib. Pharmacy consult has been requested. Allergies Allergy/AdvReac Type Severity Reaction Status Date / Time adhesive Allergy Verified 01/23/22 10:40 Latex, Natural Rubber Allergy Verified 01/23/22 10:40 lisinopril Allergy Verified 01/23/22 10:40 oxycodone Allergy Verified 01/23/22 10:40 Exam Narrative: Exam Narrative: GEN: Alert and answering questions appropriately HEENT: EOMIs bilaterally, no scleral icterus CV: Irregularly irregular, no concerning murmurs, rubs, or gallops R: LCTA bilaterally without concerning wheezing, rales, or rhonchi, air movement adequate Ext: wwp, no concerning edema Skin: Dry skin on bilateral upper arms, no concerning rash or skin changes noted Neuro: Noted to have mild tremor while eating, no focal deficits Psych: Appropriate Const: Vital Signs, click to edit/add: Vital Signs - 24 hr 04/01/22 13:56 04/01/22 14:28 04/01/22 14:30 Temperature 97.1 F L Pulse Rate 74 77 Pulse Rate [Pulse Oximeter] 70 Respiratory Rate 18 Blood Pressure Blood Pressure [Le ft Upper Arm] 187/106 H Pulse Oximetry 96 96 [facility] 04/01/22 14:32 04/01/22 15:00 04/01/22 15:03 Temperature Pulse Rate 72 63 75 Pulse Rate [Pulse Oximeter] Respiratory Rate Blood Pressure 175/106 H 201/111 H Blood Pressure [Le ft Upper Arm] Pulse Oximetry 97 96 95 [facility] 04/01/22 15:30 04/01/22 15:32 04/01/22 15:33 Temperature Pulse Rate 72 69 72 Pulse Rate [Pulse Oximeter] Respiratory Rate Blood Pressure 186/111 H Blood Pressure [Le ft Upper Arm] Pulse Oximetry 94 93 95 Oxygen Delivery [facility] 04/01/22 16:00 04/01/22 16:03 04/01/22 16:30 Temperature Pulse Rate 75 82 72 Pulse Rate [Pulse Oximeter] Respiratory Rate Blood Pressure 182/102 H Blood Pressure [Le ft Upper Arm] Pulse Oximetry 95 95 91 [facility] 04/01/22 16:32 04/01/22 16:33 04/01/22 17:00 Temperature Pulse Rate 71 78 76 Pulse Rate [Pulse Oximeter] Respiratory Rate Blood Pressure 179/102 H Blood Pressure [Le ft Upper Arm] Pulse Oximetry 93 91 94 [facility] - H&P: Result Labs Labs: Short CBC 04/01/22 Range/Units 14:28 WBC 9.51 (4.50-11.00) K/uL Hgb 13.9 (13.5-17.5) gm/dL Hct 41.7 (37.0-53.0) % Plt Count 241 (140-440) K/uL BMP 04/01/22 14:28 Sodium 134 L Potassium 4.6 Chloride 101 Carbon Dioxide 23 BUN 38 H Creatinine 1.6 H Glucose 153 H Calcium 8.7 Cardiac Enzymes 04/01/22 Range/Units 14:28 Troponin I < 0.01 L (0.01-0.04) ng/mL Liver Function 04/01/22 Range/Units 14:28 Total Bilirubin 0.5 (0.1-1.5) mg/dL Direct Bilirubin 0.2 (0.0-0.5) mg/dL AST 23 (12-35) U/L ALT 24 (4-50) U/L Alkaline Phosphatase 95 (40-150) U/L Albumin 4.4 (3.3-5.0) g/dL Urine 04/01/22 Range/Units 15:38 Urine Color Yellow (Yellow) Urine Appearance Clear (Clear) Urine pH 5.0 (5.0-8.5) Ur Specific [place] 1.010 (1.000-1.030) Urine Protein Negative (Negative) Urine Glucose (UA) 2+ A (Negative) Assessment and Plan Assessment and plan (1) Dyspnea: Problem comment: - CHF exacerbation most likely, no evidence of acute infection or ACS, hyperthyroidism and atrial fibrillation also possibly contributing - lactate elevated in ED, improved after IVF administration. Normal WBC, no fever. Will defer empiric antibiotics at this time; low threshold to initiate if status changes - given 1 dose of IV Lasix upon admission, TTE tomorrow to assess LVEF Status: Acute (2) Paroxysmal A-fib: Problem comment: - was on Eliquis previously, unclear if he is on this now (presumably not, given 325 mg of aspirin daily) - will use Eliquis for prophylaxis during inpatient stay and hold ASA, request formal medication reconciliation through pharmacy Status: Acute (3) Hyperthyroidism: Problem comment: - patient's symptoms over the past few days are similar to what he has had in the past with hyperthyroidism - TSH is suppressed on admission; free T4 to be obtained tomorrow. Will increase methimazole dosing from 5 -->10mg Status: Acute (4) Essential hypertension: Problem comment: - symptomatic with hypertension, also has history orthostatic hypotension and is on midodrine as an outpatient - hold midodrine, continue home dose of captopril, increase home dose of Methimazole obtain orthostatic blood pressures - we will also decrease his venlafaxine dose from 25 mg TID (looks like he takes this at 8am, noon, and 8pm at home) to once daily - consider addition of BB pending response to above changes Status: Acute (5) CHF (congestive heart failure): Problem comment: - Certainly CHF exacerbation could be contributing to symptoms - most recent TTE below, will repeat tomorrow given change in status - given 1 dose of IV Lasix on admission, will continue home doses of torsemide and spironolactone Last TTE 08/2021: Final Impressions: 1. Normal LV size, normal wall thickness, hyperdynamic global systolic function with an estimated EF of 70 - 75%. 2. Right ventricular cavity size is severely enlarged, global systolic RV fun ction is severely reduced. Austin's sign noted. 3. Severely enlarged left atrium. 4. The aortic valve is sclerotic and trileaflet, mild stenosis and trivial regurgitation. 5. Mild-moderate tricuspid regurgitation. 6. Moderately increased estimated pulmonary systolic pressures by tricuspid regurgitation velocity and right atrial pressure (~50 mmHg). 7. The inferior vena cava is dilated, respiratory size variation less than 50%, consistent with elevated right atrial pressure. Status: Acute (6) Seizure: Problem comment: - during hospital stay 08/2021, none since - on Tavo as an outpatient, will continue this Status: Acute (7) Stage III chronic kidney disease: Problem comment: - noted, creatinine 1.6 on admission (baseline) Status: Acute (8) Non-insulin dependent diabetes mellitus: Problem comment: - no recent outpatient A1c available for review; will obtain A1c - continue home meds, sliding scale insulin, Accu-Cheks Status: Acute Plan - per above (increase methimazole, hold midodrine, continue diuretics and home blood pressure meds, TTE tomorrow) - SCDs and Eliquis for prophylaxis - PT and OT consults given age and risk for deconditioning - likely home to [place] when medically stable - daughter Georgina and granddaughter present at bedside during admission, questions answered
[2022-04-01 18:12] LABS: Creatine Kinase* 51 U/L (54-186)
[2022-04-01] MEDS: FUROSEMIDE 10 MG/ML inj 20 MG IVP (18:15)
[2022-04-01] MEDS: SODIUM CHLORIDE 0.9 % (FLUSH) 10 ML SYRINGE 5 ML IVF ×2 (18:16→20:35)
--- NOTE | 2022-04-01 18:21 | PC.NURSE ---
End of Shift Note: Patient was admitted from the ER around 1700. He was brought up by w/c. When he first arrived asked if he walks with a walker or cane he has been using an electric w/c. With the assistance of the ophthalmic tech he did take a couple of steps to get into bed. He was very SOB from even taking those few steps. He is alert and orientated did complete most of his admission have not had a chance to complete his physical assessment as provider has been in the room with him and now lab is drawing blood. Will continue to monitor and give report to the next shift.
[2022-04-01 18:41] LABS: Thyroid Stimulating Hormone* 0.049 uIU/mL (0.270-4.20)
[2022-04-01 18:52] LABS: Creatine Kinase* 57 U/L (54-186)
[2022-04-01] MEDS: levETIRAcetam 500 MG TABLET PO (20:35)
[2022-04-01] MEDS: SODIUM CHLORIDE NASAL SPRAY 1 SPRAY NOSTRIL-B (20:35)
[2022-04-02] VITALS (8 sets, daily range): BP systolic 139–176; BP diastolic 79–93; PULSE 7–85; RESP 16–20; TEMP 36.4–36.6; O2SAT 90–94
[2022-04-02 04:38] LABS: HCO3 VBG 28 mmol/L (21-28); PCO2 VBG 46 mmHG (40-50); PO2 VBG 59.4 mmHG (25-47); pH VBG 7.402 (7.32-7.43)
[2022-04-02 04:46] LABS: Basophils Absolute Auto 0.03 K/uL (0.00-0.30); Basophils Percent Auto 0.4 % (0.0-3.0); Eosinophils Absolute Auto 0.22 K/uL (0.00-0.50); Eosinophils Percent Auto 2.7 % (0.0-7.0); Hematocrit 41.6 % (37.0-53.0); Hemoglobin* 13.6 gm/dL (13.5-17.5); Immature Granulocytes Abs Auto 0.02 K/uL (0.00-0.30); Immature Granulocytes Pct Auto 0.2 %; Lymphocytes Absolute Auto 1.68 K/uL (0.90-2.90); Lymphocytes Percent Auto 20.9 % (20-44); Mean Corpuscular HGB Conc 33 gm/dL (32-36); Mean Corpuscular Hemoglobin 29 pg (26-34); Mean Corpuscular Volume 88 fL (80-100); Monocytes Percent Auto 10.7 % (0.0-11.0); Neutrophils Absolute Auto 5.23 K/uL (1.7-7.0); Neutrophils Percent Auto 65.1 % (42.0-72.0); Platelet Count* 216 K/uL (140-440); RDW Coefficient of Variation % 13.2 % (11.5-15.5); Red Blood Count 4.75 m/uL (4.30-5.90); White Blood Count* 8.04 K/uL (4.50-11.00)
[2022-04-02 04:47] LABS: Slide Review Reflex No
[2022-04-02 04:57] LABS: Albumin* 4.1 g/dL (3.3-5.0); Chloride* 104 mmol/L (96-114); Potassium* 4.7 mmol/L (3.6-5.1); Sodium* 136 mmol/L (135-149)
[2022-04-02 05:00] LABS: Alanine Aminotransferase* 21 U/L (4-50); Alkaline Phosphatase* 84 U/L (40-150); Aspartate Amino Transferase* 22 U/L (12-35); Bilirubin Total* 0.7 mg/dL (0.1-1.5); Blood Urea Nitrogen* 42 mg/dL (7-30); Carbon Dioxide* 25 mmol/L (20-32); Creatinine* 1.6 mg/dL (0.5-1.5); Est. Creatinine Clearance* 36.75; Estimated Glomerular Filt Rate 43 ml/min; Glucose* 124 mg/dL (60-115); Total Protein* 6.7 g/dL (6.0-8.3)
[2022-04-02 05:01] LABS: Calcium* 8.7 mg/dL (8.4-10.6)
--- NOTE | 2022-04-02 06:23 | PC.NURSE ---
19-07: pleasant and cooperative. Uses urinal at bedside. A x 1 with walker for orthos. SBP 150s.?No c/o headache or chest pain. O2 sats >88%. Upper extremity tremor noted. Tele = Afib. BG 180 at HS, no insulin given at that time per nurse discretion. BG at 0200 127, no insulin needed per SS.
[2022-04-02 06:25] LABS: Free T4 Free Thyroxine* 1.39 ng/dL (0.70-1.85)
[2022-04-02] MEDS: ACETAMINOPHEN 500 MG TABLET 1000 MG PO ×3 (08:58→21:09)
[2022-04-02] MEDS: FERROUS SULFATE 325 MG TABLET PO (08:59)
[2022-04-02] MEDS: FOLIC ACID 1 MG TABLET PO (08:59)
[2022-04-02] MEDS: levETIRAcetam 500 MG TABLET PO ×2 (08:59→21:09)
[2022-04-02] MEDS: SPIRONOLACTONE 25 MG TABLET 12.5 MG PO (08:59)
[2022-04-02] MEDS: TORSEMIDE 5 MG TABLET 10 MG PO (08:59)
[2022-04-02] MEDS: CYANOCOBALAMIN (VITAMIN B-12) 500 MCG TABLET 1000 MCG PO (08:59)
[2022-04-02] MEDS: LIDOCAINE 5% PATCH 1 PATCH TRANSDERMA (09:00)
[2022-04-02] MEDS: SODIUM CHLORIDE NASAL SPRAY 1 SPRAY NOSTRIL-B ×2 (09:00→21:09)
[2022-04-02] MEDS: FUROSEMIDE 10 MG/ML inj 40 MG IVP (09:00)
[2022-04-02] MEDS: SODIUM CHLORIDE 0.9 % (FLUSH) 10 ML SYRINGE 5 ML IVF ×2 (09:02→21:10)
[2022-04-02] MEDS: FLUTICASONE PROPIONATE NASAL 1 SPRAY NOSTRIL-B (09:38)
[2022-04-02] MEDS: methIMAzole 5 MG TABLET 10 MG PO (09:38)
--- NOTE | 2022-04-02 16:10 | PM.IMPN1 ---
Progress Note: A&P Assessment and plan (1) Dyspnea: Problem details: - CHF exacerbation most likely, no evidence of acute infection or ACS, hyperthyroidism and atrial fibrillation also possibly contributing - lactate elevated in ED, improved after IVF administration. Normal WBC, no fever. Will defer empiric antibiotics at this time; low threshold to initiate if status changes - given 1 dose of IV Lasix upon admission, TTE tomorrow to assess LVEF Status: Acute Assessment and Plan: Likely multifactorial. Physical debility, exercise intolerance, pulmonary hypertension, diastolic heart failure. (2) Paroxysmal A-fib: Problem details: - was on Eliquis previously, unclear if he is on this now (presumably not, given 325 mg of aspirin daily) - will use Eliquis for prophylaxis during inpatient stay and hold ASA, request formal medication reconciliation through pharmacy Status: Acute (3) Hyperthyroidism: Problem details: - patient's symptoms over the past few days are similar to what he has had in the past with hyperthyroidism - TSH is suppressed on admission; free T4 to be obtained tomorrow. Will increase methimazole dosing from 5 -->10mg Status: Acute (4) Essential hypertension: Problem details: - symptomatic with hypertension, also has history orthostatic hypotension and is on midodrine as an outpatient - hold midodrine, continue home dose of captopril, increase home dose of Methimazole obtain orthostatic blood pressures - we will also decrease his venlafaxine dose from 25 mg TID (looks like he takes this at 8am, noon, and 8pm at home) to once daily - consider addition of BB pending response to above changes Status: Acute (5) CHF (congestive heart failure): Problem details: - Certainly CHF exacerbation could be contributing to symptoms - most recent TTE below, will repeat tomorrow given change in status - given 1 dose of IV Lasix on admission, will continue home doses of torsemide and spironolactone Last TTE 08/2021: Final Impressions: 1. Normal LV size, normal wall thickness, hyperdynamic global systolic function with an estimated EF of 70 - 75%. 2. Right ventricular cavity size is severely enlarged, global systolic RV function is severely reduced. Austin's sign noted. 3. Severely enlarged left atrium. 4. The aortic valve is sclerotic and trileaflet, mild stenosis and trivial regurgitation. 5. Mild-moderate tricuspid regurgitation. 6. Moderately increased estimated pulmonary systolic pressures by tricuspid regurgitation velocity and right atrial pressure (~50 mmHg). 7. The inferior vena cava is dilated, respiratory size variation less than 50%, consistent with elevated right atrial pressure. Current transthoracic echocardiogram preliminary report essentially unchanged from previously. Aortic stenosis may have progressed. Status: Acute Assessment and Plan: Furosemide 40 mg IV this morning. Consider adding low-dose metoprolol succinate tomorrow morning, such as either 12.5 mg daily or 25 mg daily (6) Seizure: Problem details: - during hospital stay 08/2021, none since - on [place] as an outpatient, will continue this Status: Acute (7) Stage III chronic kidney disease: Problem details: - noted, creatinine 1.6 on admission (baseline) Status: Acute (8) Non-insulin dependent diabetes mellitus: Problem details: - no recent outpatient A1c available for review; will obtain A1c - continue home meds, sliding scale insulin, Accu-Cheks Status: Acute Plan 1. Reviewed with patient. Answered his questions. 2. Patient agreeable to above stated plans and recommendations. Time Spent With Patient Total time spent: 40 minutes Subjective Time Seen by Provider: 09:00 Date Seen: 04/02/22 Interval history: Hospital day 2. Chest pain has resolved. Still has dyspnea. Has chronic dyspnea with exertion. Denies dyspnea at rest or paroxysmal nocturnal dyspnea orthopnea. Denies dependent edema. Denies syncope or near-syncope. Denies orthostasis. Chronic generalized weakness and unstable gait. Ordinarily utilizes an electric motor scooter. Does minimal walking. Still transfers independently. Denies fevers, rigors, diaphoresis. Denies cough. Exam Narrative: Exam Narrative: Appears comfortable in no acute distress. Tachypnea at rest with respirations of 20. Not orthostatic. Alert and oriented to person, place, time, situation. Seems to have poor insight about his health. Friendly, articulate, cooperative. Mood and affect are congruent. Lungs fairly clear to auscultation, scattered rhonchi. No wheezing or rales. Heart tones distant but with regular rhythm, normal S1-S2. Abdomen with active bowel sounds, soft, nontender. Obese. Extremities with trace edema pretibially bilaterally. No focal motor neurologic deficits. Const: Vital Signs, click to edit/add: Vital Signs - 24 hr 04/01/22 16:30 04/01/22 16:32 04/01/22 16:33 Temperature Pulse Rate 72 71 78 Pulse Rate [Left R adial] Pulse Rate [Pulse Oximeter] Pulse Rate [orthos tatic lying] Pulse Rate [orthos tatic sitting] Pulse Rate [orthos tatic standing] Respiratory Rate Blood Pressure 179/102 H Blood Pressure [Le ft Arm] Blood Pressure [or thostatic lying] Blood Pressure [or thostatic sitting] Blood Pressure [or thostatic standing ] Pulse Oximetry 91 93 91 Oxygen Delivery Me thod 04/01/22 17:00 04/01/22 17:18 04/01/22 18:48 Temperature Pulse Rate 76 75 Pulse Rate [Left R adial] 66 Pulse Rate [Pulse Oximeter] Pulse Rate [orthos tatic lying] Pulse Rate [orthos tatic sitting] Pulse Rate [orthos tatic standing] Respiratory Rate 20 Blood Pressure Blood Pressure [Le ft Arm] 184/101 H Blood Pressure [or thostatic lying] Blood Pressure [or thostatic sitting] Blood Pressure [or thostatic standing ] Pulse Oximetry 94 96 Oxygen Delivery Me thod Room Air 04/01/22 19:00 04/01/22 17:18 04/01/22 22:22 Temperature Pulse Rate Pulse Rate [Left R adial] 80 Pulse Rate [Pulse Oximeter] Pulse Rate [orthos tatic lying] Pulse Rate [orthos tatic sitting] Pulse Rate [orthos tatic standing] Respiratory Rate 24 24 22 Blood Pressure Blood Pressure [Le ft Arm] 163/82 H Blood Pressure [or thostatic lying] Blood Pressure [or thostatic sitting] Blood Pressure [or thostatic standing ] Pulse Oximetry 95 95 Oxygen Delivery Me thod Room Air Room Air 04/01/22 22:22 04/01/22 22:47 04/01/22 23:00 Temperature 97.9 F Pulse Rate 69 Pulse Rate [Left R adial] Pulse Rate [Pulse Oximeter] 69 Pulse Rate [orthos tatic lying] Pulse Rate [orthos tatic sitting] Pulse Rate [orthos tatic standing] Respiratory Rate 22 20 Blood Pressure Blood Pressure [Le ft Arm] 161/89 H Blood Pressure [or thostatic lying] Blood Pressure [or thostatic sitting] Blood Pressure [or thostatic standing ] Pulse Oximetry 95 91 Oxygen Delivery Me thod Room Air Room Air 04/02/22 02:41 04/02/22 06:18 04/02/22 07:00 Temperature 98 F Pulse Rate Pulse Rate [Left R adial] Pulse Rate [Pulse Oximeter] 68 77 Pulse Rate [orthos tatic lying] 74 Pulse Rate [orthos tatic sitting] 74 Pulse Rate [orthos tatic standing] 85 Respiratory Rate 20 20 Blood Pressure Blood Pressure [Le ft Arm] 139/89 Blood Pressure [or thostatic lying] 176/92 H Blood Pressure [or thostatic sitting] 154/83 H Blood Pressure [or thostatic standing ] 158/92 H Pulse Oximetry 94 Oxygen Delivery Me thod Room Air 04/02/22 07:00 04/02/22 07:00 04/02/22 11:00 Temperature 97.5 F L 98 F Pulse Rate Pulse Rate [Left R adial] Pulse Rate [Pulse Oximeter] 77 76 Pulse Rate [orthos tatic lying] Pulse Rate [orthos tatic sitting] Pulse Rate [orthos tatic standing] Respiratory Rate 20 20 20 Blood Pressure Blood Pressure [Le ft Arm] 150/79 H 171/87 H Blood Pressure [or thostatic lying] Blood Pressure [or thostatic sitting] Blood Pressure [or thostatic standing ] Pulse Oximetry 92 92 90 Oxygen Delivery Wa thod Room Air Room Air Room Air 04/02/22 07:00 04/02/22 13:02 04/02/22 15:00 Temperature 98 F Pulse Rate 82 73 Pulse Rate [Left R adial] Pulse Rate [Pulse Oximeter] Pulse Rate [orthos tatic lying] Pulse Rate [orthos tatic sitting] Pulse Rate [orthos tatic standing] Respiratory Rate Blood Pressure Blood Pressure [Le ft Arm] Blood Pressure [or thostatic lying] Blood Pressure [or thostatic sitting] Blood Pressure [or thostatic standing ] Pulse Oximetry Oxygen Delivery Me thod 04/02/22 15:00 04/02/22 15:00 04/02/22 15:00 Temperature 97.6 F Pulse Rate Pulse Rate [Left R adial] Pulse Rate [Pulse Oximeter] 77 7 L Pulse Rate [orthos tatic lying] Pulse Rate [orthos tatic sitting] Pulse Rate [orthos tatic standing] Respiratory Rate 20 20 20 Blood Pressure Blood Pressure [Le ft Arm] 155/83 H Blood Pressure [or thostatic lying] Blood Pressure [or thostatic sitting] Blood Pressure [or thostatic standing ] Pulse Oximetry 93 93 Oxygen Delivery Me thod Room Air Room Air Documenting provider has reviewed patient's vital signs: yes Labs Labs: Laboratory Results - last 24 hr 04/01/22 04/01/22 04/01/22 14:28 14:28 18:14 WBC RBC Hgb Hct MCV MCH MCHC RDW Coeff of Gilbert Plt Count Neut % (Auto) Lymph % (Auto) [place] % (Auto) Eos % (Auto) Baso % (Auto) Neut # (Auto) Lymph # (Auto) [place] # (Auto) Eos # (Auto) Baso # (Auto) VBG pH VBG pCO2 VBG pO2 VBG HCO3 Sodium Potassium Chloride Carbon Dioxide BUN Creatinine Estimated Creat Clear Estimated GFR Glucose Lactate 2.0 H Calcium Total Bilirubin AST ALT Alkaline Phosphatase Total Creatine Kinase 51 L Total Protein Albumin TSH 0.049 L Free T4 04/01/22 04/02/22 04/02/22 18:14 04:15 04:15 WBC 8.04 RBC 4.75 Hgb 13.6 Hct 41.6 MCV 88 MCH 29 MCHC 33 RDW Coeff of Gilbert 13.2 Plt Count 216 Neut % (Auto) 65.1 Lymph % (Auto) 20.9 [place] % (Auto) 10.7 Eos % (Auto) 2.7 Baso % (Auto) 0.4 Neut # (Auto) 5.23 Lymph # (Auto) 1.68 [place] # (Auto) 0.90 Eos # (Auto) 0.22 Baso # (Auto) 0.03 VBG pH VBG pCO2 VBG pO2 VBG HCO3 Sodium 136 Potassium 4.7 Chloride 104 Carbon Dioxide 25 BUN 42 H Creatinine 1.6 H Estimated Creat Clear 36.75 Estimated GFR 43 Glucose 124 H Lactate Calcium 8.7 Total Bilirubin 0.7 AST 22 ALT 21 Alkaline Phosphatase 84 Total Creatine Kinase 57 Total Protein 6.7 Albumin 4.1 TSH Free T4 04/02/22 04/02/22 04:15 04:15 WBC RBC Hgb Hct MCV MCH MCHC RDW Coeff of Gilbert Plt Count Neut % (Auto) Lymph % (Auto) [place] % (Auto) Eos % (Auto) Baso % (Auto) Neut # (Auto) Lymph # (Auto) [place] # (Auto) Eos # (Auto) Baso # (Auto) VBG pH 7.402 VBG pCO2 46 VBG pO2 59.4 H VBG HCO3 28 Sodium Potassium Chloride Carbon Dioxide BUN Creatinine Estimated Creat Clear Estimated GFR Glucose Lactate Calcium Total Bilirubin AST ALT Alkaline Phosphatase Total Creatine Kinase Total Protein Albumin TSH Free T4 1.39
[2022-04-02] MEDS: Empagliflozin [Jardiance] 25 mg tablet PO (18:46)
[2022-04-02] MEDS: Budesonide-Formoterol [Symbicort] 160-4.5 mcg/actuation 2 EACH IH ×2 (18:47→21:45)
[2022-04-02] MEDS: diphenhydrAMINE 50 MG/ML inj IVP (18:55)
--- NOTE | 2022-04-02 19:06 | PC.NURSE ---
Shift Note [id number]: Pt moving well with assist x1 today to BSC or chair. BP's continue to be hypertensive but are much improved at 150 systolically. C/o 7/10 neck pain, minimal relief with position change or Tylenol. Blood cultures positive, vanco infusing. Pt c/o itching/erythema around infusion site and MD updated. Vanco continuing to infuse, erythema outlined, and Benadryl given IVP. Will update MD if itching/redness continue to worsen. Denies difficulty breathing or face/tongue swelling.
[2022-04-03 02:29] LABS: Hemoglobin A1C* 6.41 % (0-5.6)
[2022-04-03 03:00] VITALS: BP 197/94; PULSE 80; RESP 24; TEMP 36.4; O2SAT 93
[2022-04-03 05:56] LABS: HCO3 VBG 28 mmol/L (21-28); PCO2 VBG 43 mmHG (40-50); PO2 VBG 59.6 mmHG (25-47); pH VBG 7.424 (7.32-7.43)
[2022-04-03 06:01] LABS: Hemoglobin* 14.2 gm/dL (13.5-17.5); Mean Corpuscular HGB Conc 33 gm/dL (32-36); Mean Corpuscular Hemoglobin 29 pg (26-34); Mean Corpuscular Volume 87 fL (80-100); Platelet Count* 213 K/uL (140-440); Red Blood Count 4.92 m/uL (4.30-5.90); White Blood Count* 8.65 K/uL (4.50-11.00)
[2022-04-03 06:13] LABS: Chloride* 102 mmol/L (96-114); Potassium* 4.5 mmol/L (3.6-5.1); Sodium* 137 mmol/L (135-149)
[2022-04-03 06:15] LABS: Slide Review Reflex No
[2022-04-03 06:20] LABS: Blood Urea Nitrogen* 45 mg/dL (7-30); Carbon Dioxide* 26 mmol/L (20-32); Creatinine* 1.4 mg/dL (0.5-1.5); Estimated Glomerular Filt Rate 50 ml/min; Glucose* 128 mg/dL (60-115); Magnesium* 2.3 mg/dL (1.5-2.6)
[2022-04-03 07:00] VITALS: BP 145/81; PULSE 71; PULSE 77; PULSE 80; RESP 20; TEMP 36.8; O2SAT 93; O2SAT 95
--- NOTE | 2022-04-03 07:42 | PC.NURSE ---
Pleasant and cooperative. Uses urinal at bedside. Upon entering room pt was talking and flailing his arms during his sleep. IV site to right hand seems back to baseline, no redness or itching. BGs 161 and 133. O2 sats > 90% on RA. SOB with exertion. BPs elevated, asymptomatic. Tele = Afib.?
[2022-04-03] MEDS: CYANOCOBALAMIN (VITAMIN B-12) 500 MCG TABLET 1000 MCG PO (08:06)
[2022-04-03] MEDS: FERROUS SULFATE 325 MG TABLET PO (08:07)
[2022-04-03] MEDS: SPIRONOLACTONE 25 MG TABLET 12.5 MG PO (08:07)
[2022-04-03] MEDS: FOLIC ACID 1 MG TABLET PO (08:07)
[2022-04-03] MEDS: levETIRAcetam 500 MG TABLET PO ×2 (08:07→21:01)
[2022-04-03] MEDS: methIMAzole 5 MG TABLET 10 MG PO (08:08)
[2022-04-03] MEDS: FLUTICASONE PROPIONATE NASAL 1 SPRAY NOSTRIL-B (08:08)
[2022-04-03] MEDS: Budesonide-Formoterol [Symbicort] 160-4.5 mcg/actuation 2 EACH IH ×2 (08:09→21:04)
[2022-04-03] MEDS: SODIUM CHLORIDE NASAL SPRAY 1 SPRAY NOSTRIL-B ×2 (08:09→21:01)
[2022-04-03] MEDS: Empagliflozin [Jardiance] 25 mg tablet PO (08:10)
[2022-04-03] MEDS: LIDOCAINE 5% PATCH 1 PATCH TRANSDERMA (08:11)
[2022-04-03 11:00] VITALS: BP 162/95; PULSE 74; RESP 20; TEMP 36.5; O2SAT 97
[2022-04-03] MEDS: TORSEMIDE 20 MG TABLET 40 MG PO (11:24)
[2022-04-03] MEDS: ACETAMINOPHEN 500 MG TABLET 1000 MG PO ×2 (14:51→21:03)
[2022-04-03 15:00] VITALS: BP 172/106; PULSE 71; PULSE 74; PULSE 75; RESP 20; TEMP 36.6; O2SAT 93; O2SAT 96
--- NOTE | 2022-04-03 15:38 | P.IMPN_ITS ---
Progress Note: A&P Assessment and plan (1) Dyspnea: Problem details: - CHF exacerbation most likely, no evidence of acute infection or ACS, hyperthyroidism and atrial fibrillation also possibly contributing. Does have known pulmonary hypertension as well. Also aortic stenosis is worsening. - lactate elevated in ED, improved after IVF administration. Normal WBC, no fever. Will defer empiric antibiotics at this time; low threshold to initiate if status changes - initially on IV diuresis with furosemide, transitioning to oral torsemide today. Continue with baseline spironolactone. Status: Acute (2) Paroxysmal A-fib: Problem details: - was on Eliquis previously, unclear if he is on this now (presumably not, given 325 mg of aspirin daily) - will use Eliquis for prophylaxis during inpatient stay and hold ASA, request formal medication reconciliation through pharmacy Status: Acute (3) Hyperthyroidism: Problem details: - patient's symptoms over the past few days are similar to what he has had in the past with hyperthyroidism - TSH is suppressed on admission; free T4 to be obtained tomorrow. Will increase methimazole dosing from 5 -->10mg Status: Acute (4) Essential hypertension: Problem details: - symptomatic with hypertension, also has history orthostatic hypotension and is on midodrine as an outpatient - hold midodrine, continue home dose of captopril, increase home dose of Methimazole obtain orthostatic blood pressures - we will also decrease his venlafaxine dose from 25 mg TID (looks like he takes this at 8am, noon, and 8pm at home) to once daily - add metoprolol succinate 12.5 mg orally once daily starting today Status: Acute (5) CHF (congestive heart failure): Problem details: - Certainly CHF exacerbation could be contributing to symptoms - most recent TTE below, will repeat tomorrow given change in status - given 1 dose of IV Lasix on admission, will continue home doses of torsemide and spironolactone Last TTE 08/2021: Final Impressions: 1. Normal LV size, normal wall thickness, hyperdynamic global systolic function with an estimated EF of 70 - 75%. 2. Right ventricular cavity size is severely enlarged, global systolic RV function is severely reduced. Austin's sign noted. 3. Severely enlarged left atrium. 4. The aortic valve is sclerotic and trileaflet, mild stenosis and trivial regurgitation. 5. Mild-moderate tricuspid regurgitation. 6. Moderately increased estimated pulmonary systolic pressures by tricuspid regurgitation velocity and right atrial pressure (~50 mmHg). 7. The inferior vena cava is dilated, respiratory size variation less than 50%, consistent with elevated right atrial pressure. Current transthoracic echocardiogram preliminary report essentially unchanged from previously. Aortic stenosis may have progressed. Status: Acute Assessment and Plan: Increase diuresis, add beta-annamaria, restart captopril. Monitor renal function panel. (6) Seizure: Problem details: - during hospital stay 08/2021, none since - on Keppra as an outpatient, will continue this Status: Acute (7) Stage III chronic kidney disease: Problem details: - noted, creatinine 1.6 on admission (baseline) Status: Acute Assessment and Plan: Creatinine slowly improving with increasing diuresis efforts. (8) Non-insulin dependent diabetes mellitus: Problem details: - no recent outpatient A1c available for review; will obtain A1c - continue home meds, sliding scale insulin, Accu-Cheks Status: Acute Plan 1. Attempting to transition patient to home going regimen. 2. Continue with other supportive efforts including physical and occupational therapy. 3. Discharge disposition planning. 4. Patient generally agreeable to above stated plans and recommendations. Time Spent With Patient Total time spent: 30 minutes Subjective Time Seen by Provider: 09:00 Date Seen: 04/03/22 Interval history: Hospital day 3. Chest pain still resolved. Still has dyspnea with exertion, which is a little worse than his baseline dyspnea with exertion. Denies dyspnea at rest or paroxysmal nocturnal dyspnea orthopnea. Denies dependent edema. Denies syncope or near-syncope. Denies orthostasis. Chronic generalized weakness and unstable gait, which for him feels worse. Ordinarily utilizes an electric motor scooter for most of his locomotion. Does minimal walking. Still transfers independently. Denies fevers, rigors, diaphoresis. Denies cough. One of his aerobic blood culture bottles is growing a Gram-positive cocci. Id and sensitivity still pending. Was started empirically on vancomycin with this finding. Additional blood cultures drawn and still negative to date. Exam Narrative: Exam Narrative: He is sound asleep when I 1st see him, laying flat on 1 pillow. Easily arouse by call of his name. Appears comfortable. As I talk with him he starts to express increasing anxiety about his condition. Tells me things like he does not know what he is going to do, and that we can keep him here as long as we need to to figure out what is going on with him. Mood and affect are congruent. Alert, oriented to self, place, in part to time, in part to situation. Despite my having informed him of our findings and our treatment efforts he does not recall this immediately but does state that he understands now. Fine end inspiratory rales bibasilarly. Some scattered rhonchi. No wheezing. Heart tones with regular rhythm, normal S1-S2. Abdomen is obese with active bowel sounds, soft, nontender. Extremities with trace edema pretibially bilaterally. Moves all 4 extremities. Generalized weakness. Skin is intact. Yesterday standing weight was 102.7 kg. Today's standing weight is 102.2 kg. Const: Vital Signs, click to edit/add: Vital Signs - 24 hr 04/02/22 19:00 04/02/22 23:00 04/02/22 23:00 Temperature 98 F Pulse Rate Pulse Rate [Pulse Oximeter] 71 80 Respiratory Rate 16 18 18 Blood Pressure [Le ft Arm] 165/93 H Pulse Oximetry 90 92 Oxygen Delivery Sc thod Room Air Room Air 04/02/22 23:00 04/02/22 23:00 04/03/22 03:00 Temperature 97.7 F 97.6 F Pulse Rate 73 Pulse Rate [Pulse Oximeter] 80 80 Respiratory Rate 18 24 Blood Pressure [Le ft Arm] 170/84 H 197/94 H Pulse Oximetry 92 [facility] 04/03/22 07:00 04/03/22 07:00 04/03/22 07:00 Temperature 98.2 F Pulse Rate Pulse Rate [Pulse Oximeter] 80 77 Respiratory Rate 20 20 20 Blood Pressure [Le ft Arm] 145/81 H Pulse Oximetry 93 95 [facility] Room Air 04/03/22 07:00 04/03/22 11:00 Temperature 97.7 F Pulse Rate 71 Pulse Rate [Pulse Oximeter] 74 Respiratory Rate 20 Blood Pressure [Le ft Arm] 162/95 H Pulse Oximetry 97 [facility] Documenting provider has reviewed patient's vital signs: yes Labs Labs: Laboratory Results - last 24 hr 04/01/22 04/03/22 04/03/22 18:14 05:38 05:38 WBC 8.65 RBC 4.92 Hgb 14.2 Hct 43.0 MCV 87 MCH 29 MCHC 33 Plt Count 213 VBG pH VBG pCO2 VBG pO2 VBG HCO3 Sodium 137 Potassium 4.5 Chloride 102 Carbon Dioxide 26 BUN 45 H Creatinine 1.4 Estimated Creat Clear 42.00 Estimated GFR 50 Glucose 128 H Hemoglobin A1c 6.41 H Calcium 9.0 Phosphorus 4.0 Magnesium 2.3 04/03/22 05:38 WBC RBC Hgb Hct MCV MCH MCHC Plt Count VBG pH 7.424 VBG pCO2 43 VBG pO2 59.6 H VBG HCO3 28 Sodium Potassium Chloride Carbon Dioxide BUN Creatinine Estimated Creat Clear Estimated GFR Glucose Hemoglobin A1c Calcium Phosphorus Magnesium
[2022-04-03] MEDS: METOPROLOL SUCCINATE (XL) 25 MG TAB 12.5 MG PO (16:24)
--- NOTE | 2022-04-03 20:11 | PC.NURSE ---
Patient continues to have hypertension. Meds adjusted per the MD. See eMAR. Using the urinal frequently. 2000 mL urine out for day shift today. Pt moving with SBA and states he is feeling stronger.
[2022-04-03 20:45] VITALS: BP 169/89; PULSE 72; RESP 28; TEMP 36.6; O2SAT 95
[2022-04-03] MEDS: SODIUM CHLORIDE 0.9 % (FLUSH) 10 ML SYRINGE 5 ML IVF (21:05)
[2022-04-03 22:41] VITALS: PULSE 71
[2022-04-04] VITALS (8 sets, daily range): BP systolic 140–159; BP diastolic 61–91; PULSE 63–76; RESP 14–22; TEMP 36.3–37.1; O2SAT 92–97
--- NOTE | 2022-04-04 06:12 | PC.NURSE ---
END OF SHIFT NOTE: PT PLEASANT AND COOPERATIVE WITH CARES. PT WITH EXPIRATORY WHEEZES. PT SLEPT WELL THROUGHOUT THE NIGHT. TELE READS AFIB.
[2022-04-04 06:30] LABS: Lactate* 1.1 mmol/L (0.5-1.9)
[2022-04-04 06:39] LABS: Hematocrit 44.6 % (37.0-53.0); Hemoglobin* 14.6 gm/dL (13.5-17.5); Mean Corpuscular HGB Conc 33 gm/dL (32-36); Mean Corpuscular Hemoglobin 29 pg (26-34); Mean Corpuscular Volume 88 fL (80-100); Platelet Count* 232 K/uL (140-440); Red Blood Count 5.07 m/uL (4.30-5.90)
[2022-04-04 06:43] LABS: Slide Review Reflex No
[2022-04-04 06:56] LABS: Chloride* 100 mmol/L (96-114); Potassium* 4.6 mmol/L (3.6-5.1); Sodium* 137 mmol/L (135-149)
[2022-04-04 06:57] LABS: Albumin* 4.2 g/dL (3.3-5.0); Chloride* 100 mmol/L (96-114); Potassium* 4.5 mmol/L (3.6-5.1); Sodium* 137 mmol/L (135-149)
[2022-04-04 06:59] LABS: Blood Urea Nitrogen* 50 mg/dL (7-30); Carbon Dioxide* 30 mmol/L (20-32); Creatinine* 1.5 mg/dL (0.5-1.5); Estimated Glomerular Filt Rate 46 ml/min; Glucose* 129 mg/dL (60-115)
[2022-04-04 07:00] LABS: Blood Urea Nitrogen* 50 mg/dL (7-30); Calcium* 9.1 mg/dL (8.4-10.6); Calcium* 9.2 mg/dL (8.4-10.6); Carbon Dioxide* 30 mmol/L (20-32); Creatinine* 1.5 mg/dL (0.5-1.5); Estimated Glomerular Filt Rate 46 ml/min; Glucose* 128 mg/dL (60-115); Phosphorus* 4.4 mg/dL (2.5-4.5)
[2022-04-04] MEDS: CYANOCOBALAMIN (VITAMIN B-12) 500 MCG TABLET 1000 MCG PO (08:44)
[2022-04-04] MEDS: ACETAMINOPHEN 500 MG TABLET 1000 MG PO ×3 (08:44→20:33)
[2022-04-04] MEDS: FERROUS SULFATE 325 MG TABLET PO (08:45)
[2022-04-04] MEDS: TORSEMIDE 20 MG TABLET PO (08:45)
[2022-04-04] MEDS: FOLIC ACID 1 MG TABLET PO (08:45)
[2022-04-04] MEDS: levETIRAcetam 500 MG TABLET PO ×2 (08:45→20:33)
[2022-04-04] MEDS: METOPROLOL SUCCINATE (XL) 25 MG TAB 12.5 MG PO (08:46)
[2022-04-04] MEDS: SPIRONOLACTONE 25 MG TABLET 12.5 MG PO (08:46)
[2022-04-04] MEDS: SODIUM CHLORIDE 0.9 % (FLUSH) 10 ML SYRINGE 5 ML IVF ×3 (08:46→20:36)
[2022-04-04] MEDS: methIMAzole 5 MG TABLET 10 MG PO (08:47)
[2022-04-04] MEDS: Budesonide-Formoterol [Symbicort] 160-4.5 mcg/actuation 2 EACH IH ×2 (08:49→20:35)
[2022-04-04] MEDS: Empagliflozin [Jardiance] 25 mg tablet PO (08:53)
[2022-04-04] MEDS: LIDOCAINE 5% PATCH 1 PATCH TRANSDERMA (08:57)
[2022-04-04] MEDS: FLUTICASONE PROPIONATE NASAL 1 SPRAY NOSTRIL-B (08:57)
[2022-04-04] MEDS: SODIUM CHLORIDE NASAL SPRAY 1 SPRAY NOSTRIL-B ×2 (08:57→20:34)
--- NOTE | 2022-04-04 10:24 | PC.NURSE ---
At approximately 0845 patient C/O chest, head and neck pain. VS obtained - BP 155/89, T 97.8, HR 76, RR 16, O2 sat 97% RA. EKG obtained. Dr. Montesinos notified and in to see patient. No new orders.
--- NOTE | 2022-04-04 14:12 | PC.NURSE ---
Pt was pleasant and cooperative today. Pt has complained of headache/head pressure. Tylenol given as scheduled. Pt has stayed in chair since breakfast time. Pt able to ambulate with walker and assist of 1.
--- NOTE | 2022-04-04 15:01 | PM.IMPN1 ---
Progress Note: A&P Assessment and plan (1) Dyspnea: Problem details: - CHF exacerbation most likely, no evidence of acute infection or ACS, hyperthyroidism and atrial fibrillation also possibly contributing. Does have known pulmonary hypertension as well. Also aortic stenosis is worsening, now mild to moderate, previously mild. - lactate elevated in ED, improved after IVF administration. Normal WBC, no fever. Will defer empiric antibiotics at this time; low threshold to initiate if status changes - initially on IV diuresis with furosemide, transitioning to oral torsemide 04/03/2022. Continue with baseline spironolactone. Status: Acute (2) Paroxysmal A-fib: Problem details: - was on Eliquis previously, unclear if he is on this now (presumably not, given 325 mg of aspirin daily) - will use Eliquis for prophylaxis during inpatient stay and hold ASA, request formal medication reconciliation through pharmacy Status: Acute (3) Hyperthyroidism: Problem details: - patient's symptoms over the past few days are similar to what he has had in the past with hyperthyroidism - TSH is suppressed on admission; free T4 to be obtained tomorrow. Will increase methimazole dosing from 5 -->10mg Status: Acute Assessment and Plan: It seems like his hyperthyroidism is impart driving his sense of anxiety. (4) Essential hypertension: Problem details: - symptomatic with hypertension, also has history orthostatic hypotension and is on midodrine as an outpatient - hold midodrine, continue home dose of captopril, increase home dose of Methimazole obtain orthostatic blood pressures - we will also decrease his venlafaxine dose from 25 mg TID (looks like he takes this at 8am, noon, and 8pm at home) to once daily - add metoprolol succinate 12.5 mg orally once daily starting today Status: Acute (5) CHF (congestive heart failure): Problem details: - Certainly CHF exacerbation could be contributing to symptoms - most recent TTE below, will repeat tomorrow given change in status - given 1 dose of IV Lasix on admission, will continue home doses of torsemide and spironolactone Last TTE 08/2021: Final Impressions: 1. Normal LV size, normal wall thickness, hyperdynamic global systolic function with an estimated EF of 70 - 75%. 2. Right ventricular cavity size is severely enlarged, global systolic RV function is severely reduced. Austin's sign noted. 3. Severely enlarged left atrium. 4. The aortic valve is sclerotic and trileaflet, mild stenosis and trivial regurgitation. 5. Mild-moderate tricuspid regurgitation. 6. Moderately increased estimated pulmonary systolic pressures by tricuspid regurgitation velocity and right atrial pressure (~50 mmHg). 7. The inferior vena cava is dilated, respiratory size variation less than 50%, consistent with elevated right atrial pressure. Current transthoracic echocardiogram preliminary report essentially unchanged from previously. Aortic stenosis may have progressed. Status: Acute Assessment and Plan: I added a low-dose of metoprolol succinate 12.5 mg once daily. Tolerating. We added torsemide to his regimen is well, tolerating. (6) Seizure: Problem details: - during hospital stay 08/2021, none since - on Keppra as an outpatient, will continue this Status: Acute (7) Stage III chronic kidney disease: Problem details: - noted, creatinine 1.6 on admission (baseline) Status: Acute (8) Non-insulin dependent diabetes mellitus: Problem details: - no recent outpatient A1c available for review; will obtain A1c - continue home meds, sliding scale insulin, Accu-Cheks Status: Acute (9) Anxiety about health: Problem details: May have a primary anxiety disorder. Is on venlafaxine. Hyperthyroid state may be driving some of this as well. Does indeed have failing health as well. Status: Acute Plan 1. Reviewed impression with patient. Answered his questions. 2. Indicated to him that is reasonable that we consider transitional care services until such time as he is in a better state of mind and can consider possibly returning to his assisted living setting. 3. Reviewed the patient's desires for transitional care services with our web content & social media manager staff though work with patient and family to try to establish a safe discharge disposition plan. The [facility] Time Spent With Patient Total time spent: 30 minutes Subjective Time Seen by Provider: 09:00 Date Seen: 04/04/22 Interval history: Hospital day 4. He is more anxious today than previously. He is telling us that he does not think he can go back to the assisted living center where he was living in and that he thinks he requires more support than what he has available in his current assisted living setting. He indicates he does not want to go back there at this time. He states he is willing to consider going back thereafter he has had a short stay in a senior care facility for transitional care services. Concerned about transient wondering pains. At times he has pain in the back of his neck, sometimes in the forehead, and sometimes on either side of his chest or abdomen. These episodes occur when he is awake. These episodes do not occur while he is asleep. He acknowledges increasing sense of anxiety and fear when he is experiencing these pains. Chest pain still resolved. Still has dyspnea with exertion, improved compared to admission but which is a little worse than his baseline dyspnea with exertion. Denies dyspnea at rest or paroxysmal nocturnal dyspnea orthopnea. Denies dependent edema. Denies syncope or near-syncope. Denies orthostasis. Chronic generalized weakness and unstable gait, which for him feels worse. Ordinarily utilizes an electric motor scooter for most of his locomotion. Does minimal walking. Still transfers independently. Denies fevers, rigors, diaphoresis. Denies cough. One of his aerobic blood culture bottles is growing a Gram-positive cocci. Id and sensitivity still pending. Was started empirically on vancomycin with this finding. Additional blood cultures drawn and still negative to date. Exam Narrative: Exam Narrative: When I 1st see him he is quite anxious. As I listen to him in examine him he calms down significantly. Alert, oriented to self, place, in part to time, in part to situation. Has he calms himself down and is less anxious he is more able to engage in conversation. Reproducible pain with palpation in the posterior aspect of his neck and head and also in his forehead. Also reproducible pain with palpation on the lateral aspect of his chest and abdomen. Lungs with fine end inspiratory rales, without wheezing or rhonchi. No CVA tenderness. Heart tones with regular rhythm, normal S1-S2. Heart murmur unchanged, consistent with known aortic stenosis. Abdomen with active bowel sounds, soft, nontender save the trigger point areas on the lateral aspect. Extremities with trace edema up to the knees. No focal motor neurologic deficits. Skin is warm, dry, intact. Const: Vital Signs, click to edit/add: Vital Signs - 24 hr 04/03/22 20:45 04/03/22 22:41 04/03/22 20:45 Temperature 97.8 F Pulse Rate 71 Pulse Rate [Left R adial] Pulse Rate [Pulse Oximeter] 72 72 Respiratory Rate 28 H 28 H Blood Pressure [Le ft Arm] 169/89 H Pulse Oximetry 95 Oxygen Delivery Me thod Room Air 04/03/22 20:45 04/04/22 01:45 04/04/22 03:00 Temperature 98.0 F Pulse Rate Pulse Rate [Left R adial] Pulse Rate [Pulse Oximeter] 74 Respiratory Rate 28 H 22 22 Blood Pressure [Le ft Arm] 159/89 H Pulse Oximetry 95 94 Oxygen Delivery Me thod Room Air Room Air Room Air 04/04/22 07:35 04/04/22 07:35 04/04/22 07:35 Temperature 97.4 F L Pulse Rate Pulse Rate [Left R adial] 65 Pulse Rate [Pulse Oximeter] 65 Respiratory Rate 18 18 Blood Pressure [Le ft Arm] 157/88 H Pulse Oximetry 94 94 Oxygen Delivery Me thod Room Air Room Air 04/04/22 10:29 04/04/22 12:06 Temperature 97.8 F Pulse Rate 63 Pulse Rate [Left R adial] Pulse Rate [Pulse Oximeter] 71 Respiratory Rate 14 Blood Pressure [Le ft Arm] 149/88 H Pulse Oximetry 96 Oxygen Delivery Me thod Room Air Documenting provider has reviewed patient's vital signs: yes Labs Labs: Laboratory Results - last 24 hr 04/04/22 04/04/22 04/04/22 05:36 05:36 05:36 WBC 8.60 RBC 5.07 Hgb 14.6 Hct 44.6 MCV 88 MCH 29 MCHC 33 Plt Count 232 Sodium 137 137 Potassium 4.6 4.5 Chloride 100 100 Carbon Dioxide 30 30 BUN 50 H 50 H Creatinine 1.5 1.5 Estimated Creat Clear 39.20 39.20 Estimated GFR 46 46 Glucose 129 H 128 H Lactate Calcium 9.1 9.2 Phosphorus 4.4 Albumin 4.2 04/04/22 05:36 WBC RBC Hgb Hct MCV MCH MCHC Plt Count Sodium Potassium Chloride Carbon Dioxide BUN Creatinine Estimated Creat Clear Estimated GFR Glucose Lactate 1.1 Calcium Phosphorus Albumin
[2022-04-04] MEDS: 0.9 % SODIUM CHLORIDE 250 ml IV (20:41)
--- NOTE | 2022-04-04 22:34 | PC.NURSE ---
End of Shift: Patient pleasant and cooperative. Afebrile. Rating pain in head and back up to 5/10 and scheduled Tylenol as ordered. Headache did resolve this evening. Up to bathroom and chair with 1 assist, walker and gait belt. Tolerating regular diet with no nausea.
[2022-04-05] VITALS (7 sets, daily range): BP systolic 110–171; BP diastolic 62–100; PULSE 62–69; RESP 16–20; TEMP 36.6–36.8; O2SAT 91–96
[2022-04-05 06:14] LABS: Hematocrit 43.4 % (37.0-53.0); Hemoglobin* 14.3 gm/dL (13.5-17.5); Mean Corpuscular HGB Conc 33 gm/dL (32-36); Mean Corpuscular Hemoglobin 29 pg (26-34); Mean Corpuscular Volume 88 fL (80-100); Platelet Count* 238 K/uL (140-440); Red Blood Count 4.96 m/uL (4.30-5.90); White Blood Count* 9.32 K/uL (4.50-11.00)
--- NOTE | 2022-04-05 06:14 | PC.NURSE ---
Pt alert and oriented x3, pleasant and cooperative. Afebrile. Pt?denies pain but reports having chronic back pain that he states as being a part of his everyday life that he tolerates, and refused PRN medications.??Pt denies chest pain, N/V and SOB. Pt is up with A1 with gait belt and walker to the bathroom,?used urinal during night. ?Tolerating a regular diet. ??
[2022-04-05 06:18] LABS: Slide Review Reflex No
[2022-04-05 06:28] LABS: Chloride* 104 mmol/L (96-114)
[2022-04-05 06:29] LABS: Potassium* 4.4 mmol/L (3.6-5.1); Sodium* 137 mmol/L (135-149)
[2022-04-05 06:31] LABS: Creatinine* 1.6 mg/dL (0.5-1.5); Est. Creatinine Clearance* 36.75; Estimated Glomerular Filt Rate 43 ml/min
[2022-04-05 06:32] LABS: Blood Urea Nitrogen* 48 mg/dL (7-30); Calcium* 9.1 mg/dL (8.4-10.6); Carbon Dioxide* 28 mmol/L (20-32); Glucose* 126 mg/dL (60-115)
[2022-04-05] MEDS: FOLIC ACID 1 MG TABLET PO (09:31)
[2022-04-05] MEDS: METOPROLOL SUCCINATE (XL) 25 MG TAB 12.5 MG PO (09:31)
[2022-04-05] MEDS: SENNOSIDES/DOCUSATE TABLET 1 TAB PO (09:32)
[2022-04-05] MEDS: levETIRAcetam 500 MG TABLET PO ×2 (09:32→21:06)
[2022-04-05] MEDS: TORSEMIDE 20 MG TABLET PO (09:32)
[2022-04-05] MEDS: SPIRONOLACTONE 25 MG TABLET 12.5 MG PO (09:32)
[2022-04-05] MEDS: FERROUS SULFATE 325 MG TABLET PO (09:32)
[2022-04-05] MEDS: CYANOCOBALAMIN (VITAMIN B-12) 500 MCG TABLET 1000 MCG PO (09:32)
[2022-04-05] MEDS: methIMAzole 5 MG TABLET 10 MG PO (09:33)
[2022-04-05] MEDS: Budesonide-Formoterol [Symbicort] 160-4.5 mcg/actuation 2 EACH IH ×2 (09:38→21:07)
[2022-04-05] MEDS: Empagliflozin [Jardiance] 25 mg tablet PO (09:38)
[2022-04-05] MEDS: SODIUM CHLORIDE NASAL SPRAY 1 SPRAY NOSTRIL-B ×2 (09:41→21:07)
[2022-04-05] MEDS: SODIUM CHLORIDE 0.9 % (FLUSH) 10 ML SYRINGE 5 ML IVF (09:42)
[2022-04-05] MEDS: FLUTICASONE PROPIONATE NASAL 1 SPRAY NOSTRIL-B (09:42)
[2022-04-05] MEDS: ACETAMINOPHEN 500 MG TABLET 1000 MG PO ×2 (09:46→14:39)
[2022-04-05] MEDS: LIDOCAINE 5% PATCH 1 PATCH TRANSDERMA (09:47)
--- NOTE | 2022-04-05 17:15 | PM.IMPN1 ---
Progress Note: A&P Assessment and plan (1) Dyspnea: Problem details: - CHF exacerbation most likely, no evidence of acute infection or ACS, hyperthyroidism and atrial fibrillation also possibly contributing. Does have known pulmonary hypertension as well. Also aortic stenosis is worsening, now mild to moderate, previously mild. - lactate elevated in ED, improved after IVF administration. Normal WBC, no fever. Will defer empiric antibiotics at this time; low threshold to initiate if status changes - initially on IV diuresis with furosemide, transitioning to oral torsemide 04/03/2022. Continue with baseline spironolactone. Status: Acute Assessment and Plan: Doing well on current regimen. (2) Paroxysmal A-fib: Problem details: - was on Eliquis previously, unclear if he is on this now (presumably not, given 325 mg of aspirin daily) - will use Eliquis for prophylaxis during inpatient stay and hold ASA, request formal medication reconciliation through pharmacy Status: Acute Assessment and Plan: Rate controlled. (3) Hyperthyroidism: Problem details: - patient's symptoms over the past few days are similar to what he has had in the past with hyperthyroidism - TSH is suppressed on admission; free T4 to be obtained tomorrow. Will increase methimazole dosing from 5 -->10mg Status: Acute Assessment and Plan: Doing well with current dose of methimazole. (4) Essential hypertension: Problem details: - symptomatic with hypertension, also has history orthostatic hypotension and is on midodrine as an outpatient - hold midodrine, continue home dose of captopril, increase home dose of Methimazole obtain orthostatic blood pressures - we will also decrease his venlafaxine dose from 25 mg TID (looks like he takes this at 8am, noon, and 8pm at home) to once daily - add metoprolol succinate 12.5 mg orally once daily starting today Status: Acute Assessment and Plan: Continue with current efforts. (5) CHF (congestive heart failure): Problem details: - Certainly CHF exacerbation could be contributing to symptoms - most recent TTE below, will repeat tomorrow given change in status - given 1 dose of IV Lasix on admission, will continue home doses of torsemide and spironolactone Last TTE 08/2021: Final Impressions: 1. Normal LV size, normal wall thickness, hyperdynamic global systolic function with an estimated EF of 70 - 75%. 2. Right ventricular cavity size is severely enlarged, global systolic RV function is severely reduced. Austin's sign noted. 3. Severely enlarged left atrium. 4. The aortic valve is sclerotic and trileaflet, mild stenosis and trivial regurgitation. 5. Mild-moderate tricuspid regurgitation. 6. Moderately increased estimated pulmonary systolic pressures by tricuspid regurgitation velocity and right atrial pressure (~50 mmHg). 7. The inferior vena cava is dilated, respiratory size variation less than 50%, consistent with elevated right atrial pressure. Current transthoracic echocardiogram preliminary report essentially unchanged from previously. Aortic stenosis may have progressed. Status: Acute Assessment and Plan: Doing well on current regimen. (6) Seizure: Problem details: - during hospital stay 08/2021, none since - on Keppra as an outpatient, will continue this Status: Acute Assessment and Plan: Stable in hospital. (7) Stage III chronic kidney disease: Problem details: - noted, creatinine 1.6 on admission (baseline) Status: Acute (8) Non-insulin dependent diabetes mellitus: Problem details: - no recent outpatient A1c available for review; will obtain A1c - continue home meds, sliding scale insulin, Accu-Cheks Status: Acute Assessment and Plan: Blood sugars adequately controlled. (9) Anxiety about health: Problem details: May have a primary anxiety disorder. Is on venlafaxine. Hyperthyroid state may be driving some of this as well. Does indeed have failing health as well. Status: Acute Plan 1. Reviewed with patient. Answered his questions. 2. Continue work with social Service for possible transfer back to assisted living setting. 3. Patient agreeable with above stated plans and recommendations. Time Spent With Patient Total time spent: 30 minutes Subjective Time Seen by Provider: 13:00 Date Seen: 04/05/22 Interval history: Hospital day 5. Less anxious today than previously. Now tells me that he thinks he can go back to his assisted living setting with increased services. Seems more confident. No longer having transient, wondering pains. Still has dyspnea with exertion, essentially back to baseline. Denies dyspnea at rest or paroxysmal nocturnal dyspnea orthopnea. Denies dependent edema. Denies syncope or near-syncope. Denies orthostasis. Denies chest heaviness, pressure, tightness, or pain. Chronic generalized weakness and unstable gait, which for him feels worse. Ordinarily utilizes an electric motor scooter for most of his locomotion. Does minimal walking. Still transfers independently. Denies fevers, rigors, diaphoresis. Denies cough. One of his aerobic blood culture bottles is growing a Gram-positive cocci. Id and sensitivity back now and reveal a contaminant. Was started empirically on vancomycin with this finding. Additional blood cultures drawn and still negative to date. Have the stop the vancomycin effective today. Exam Narrative: Exam Narrative: Appears comfortable no acute distress. Much less anxious. In fact does not appear anxious at all today. Alert, oriented to self, place, time, situation. Lungs with some fine end inspiratory rales otherwise clear. Heart tones with regular rhythm. Abdomen obese with active bowel sounds, soft nontender. Trace edema pretibially bilaterally. Weight today 101.8 kg. Has lost 5 kg since admission. Const: Vital Signs, click to edit/add: Vital Signs - 24 hr 04/04/22 19:00 04/04/22 23:00 04/04/22 23:00 Temperature 98.7 F Pulse Rate Pulse Rate [Left R adial] 71 Pulse Rate [Pulse Oximeter] 76 71 Respiratory Rate 20 18 18 Blood Pressure [Le ft Arm] 140/61 H Blood Pressure [Ri ght Arm] Pulse Oximetry 95 92 Oxygen Delivery Me thod Room Air Room Air 04/04/22 23:00 04/04/22 23:00 04/05/22 03:00 Temperature 98.2 F 98.3 F Pulse Rate 76 Pulse Rate [Left R adial] 62 Pulse Rate [Pulse Oximeter] 71 Respiratory Rate 16 16 Blood Pressure [Le ft Arm] 142/91 H 153/83 H Blood Pressure [Ri ght Arm] Pulse Oximetry 92 94 Oxygen Delivery Ky thod Room Air Room Air 04/05/22 08:16 04/05/22 08:16 04/05/22 08:16 Temperature 98.1 F Pulse Rate Pulse Rate [Left R adial] Pulse Rate [Pulse Oximeter] 69 Respiratory Rate 20 20 Blood Pressure [Le ft Arm] Blood Pressure [Ri ght Arm] 163/100 H Pulse Oximetry 94 94 Oxygen Delivery Ky thod Room Air Room Air 04/05/22 11:13 04/05/22 07:53 Temperature 98.1 F Pulse Rate 67 Pulse Rate [Left R adial] Pulse Rate [Pulse Oximeter] 68 Respiratory Rate 18 Blood Pressure [Le ft Arm] Blood Pressure [Ri ght Arm] 110/62 Pulse Oximetry 93 Oxygen Delivery Me thod Room Air Documenting provider has reviewed patient's vital signs: yes Labs Labs: Laboratory Results - last 24 hr 04/05/22 04/05/22 05:44 05:44 WBC 9.32 RBC 4.96 Hgb 14.3 Hct 43.4 MCV 88 MCH 29 MCHC 33 Plt Count 238 Sodium 137 Potassium 4.4 Chloride 104 Carbon Dioxide 28 BUN 48 H Creatinine 1.6 H Estimated Creat Clear 36.75 Estimated GFR 43 Glucose 126 H Calcium 9.1
--- NOTE | 2022-04-05 19:20 | PC.NURSE ---
Assumed care of this patient at 1500 pm. Urinal use 650cc and BRP with BM. SBA of one with GB and walker. Up to recliner for dinner. Tele indicates a-fib. Report to Cintia Acharya RN for weight shifter, pt needs new IV insertion per Dr. Kang this evening.
--- NOTE | 2022-04-05 19:28 | PC.NURSE ---
BG 141 prior to dinner, no SS insulin required.
[2022-04-05] MEDS: ACETAMINOPHEN 325 MG TABLET 975 MG PO (21:06)
--- NOTE | 2022-04-06 | PC.SOCIAL ---
Addendum entered by SHANTEL Larson 04/06/22 10:09: Spoke with Ger from [facility]. Nursing is being provided by [facility] currently, so PT/OT will be added through [facility]. Nursing faxed face to face home care order form to [facility] at [phone]. Phone call to Julee at [facility] to provide her with an update on PT/OT referral that was completed. Social Work will follow up as necessary. Original Note: Discharge planning- Recommendations from therapy are that pt return to previous living situation with PT/OT services in place. Pt was a standby assist with therapy today. Pt has Nursing services only through [facility]. Phone call to pt's daughter, Georgina. Provided an update on pt and how therapy has gone today. Informed that pt will be able to return to [facility] with PT/OT to continue. Informed that this worker will be reaching out to [facility] to provide an update. Daughter can come tomorrow morning and transport pt to [facility] as she is currently at work for the evening. Daughter will come to [facility] in the morning. Phone call to Julee Hurt ([phone]) at [facility]. Provided an update on pt. Elza requested progress notes to be faxed to [facility] at [phone]. Elza states that pt can return tomorrow and she will discuss with family if there needs to be an increase in services. Informed that therapy is recommending PT/OT services. Elza stated that this worker can send the home care order to her as [facility] sets the home care up through [facility] and Elza can assist with that. Informed that pt's daughter, Georgina, will transport pt back to [facility] tomorrow morning (04/06/22). Completed face to face order for home care for PT/OT. Faxed progress notes and face to face home health care services order for PT/OT services to [facility]. Social Work will continue to follow up as necessary.
[2022-04-06 01:44] VITALS: PULSE 55
[2022-04-06 03:00] VITALS: BP 181/90; PULSE 66; RESP 18; TEMP 36.3; O2SAT 97
--- NOTE | 2022-04-06 05:40 | PC.NURSE ---
Pt alert and oriented x3, pleasant and cooperative. Afebrile. Pt?denies pain, chest pain, N/V and SOB. Pt is up with A1 with gait belt and walker to the bathroom,?used urinal during night. ?Tolerating a regular diet. ??
[2022-04-06 07:00] VITALS: PULSE 65
[2022-04-06 07:00] LABS: Albumin* 4.1 g/dL (3.3-5.0); Chloride* 102 mmol/L (96-114); Potassium* 4.4 mmol/L (3.6-5.1); Sodium* 136 mmol/L (135-149)
[2022-04-06 07:03] LABS: Blood Urea Nitrogen* 51 mg/dL (7-30); Carbon Dioxide* 27 mmol/L (20-32); Creatinine* 1.6 mg/dL (0.5-1.5); Est. Creatinine Clearance* 36.75; Estimated Glomerular Filt Rate 43 ml/min; Glucose* 127 mg/dL (60-115); Phosphorus* 4.7 mg/dL (2.5-4.5)
[2022-04-06 07:04] LABS: Calcium* 8.9 mg/dL (8.4-10.6)
[2022-04-06 08:00] VITALS: BP 176/117; PULSE 65; RESP 18; TEMP 36.6; O2SAT 94
[2022-04-06] MEDS: LIDOCAINE 5% PATCH 1 PATCH TRANSDERMA (08:44)
[2022-04-06] MEDS: methIMAzole 5 MG TABLET 10 MG PO (08:47)
[2022-04-06] MEDS: levETIRAcetam 500 MG TABLET PO (08:48)
[2022-04-06] MEDS: TORSEMIDE 20 MG TABLET PO (08:48)
[2022-04-06] MEDS: SPIRONOLACTONE 25 MG TABLET 12.5 MG PO (08:48)
[2022-04-06] MEDS: FERROUS SULFATE 325 MG TABLET PO (08:48)
[2022-04-06] MEDS: METOPROLOL SUCCINATE (XL) 25 MG TAB 12.5 MG PO (08:48)
[2022-04-06] MEDS: FLUTICASONE PROPIONATE NASAL 1 SPRAY NOSTRIL-B (08:49)
[2022-04-06] MEDS: ACETAMINOPHEN 500 MG TABLET 1000 MG PO (08:49)
[2022-04-06] MEDS: FOLIC ACID 1 MG TABLET PO (08:49)
[2022-04-06] MEDS: CYANOCOBALAMIN (VITAMIN B-12) 500 MCG TABLET 1000 MCG PO (08:49)
[2022-04-06] MEDS: Budesonide-Formoterol [Symbicort] 160-4.5 mcg/actuation 2 EACH IH (08:51)
[2022-04-06] MEDS: SODIUM CHLORIDE NASAL SPRAY 1 SPRAY NOSTRIL-B (08:51)
[2022-04-06] MEDS: Empagliflozin [Jardiance] 25 mg tablet PO (08:52)
--- NOTE | 2022-04-06 10:30 | PC.SOCIAL ---
Discharge planning- Phone call to pt's daughter, Georgina, at [phone]. Provided Georgina with an update on home care. Georgina states that pt has had the same nurse for two years with [facility] and she would hope to keep that home care. Informed that this worker sent the PT/OT orders to [facility] to add services. Explained that pt is not able to have 2 different home care agencies at the same time. Daughter informed that they are snowed in and her is out plowing the driveway. Daughter states that her will pick pt up in the early afternoon for discharge due to weather. Provided update to charge nurse.
[2022-04-06 11:00] VITALS: BP 161/75; PULSE 70; RESP 20; TEMP 36.7; O2SAT 92
--- NOTE | 2022-04-06 15:11 | PM.DS1 ---
DS: Providers Provider Time Seen by Provider: 08:00 Date Seen: 04/06/22 Date of admission: 04/05/22 17:06 Primary care physician: Not a Local Provider Admitting Clinician: Abdoulaye Montesinos MD Consults: 04/01/22 18:29 Consult to Physical Therapy [CONS] Routine Comment: Reason(s) for PT Consult:: Evaluate and Treat Any Restrictions?:: Wt Bearing as Tolerated 04/01/22 18:31 Consult to Occupational Therapy [CONS] Routine Comment: Reason(s) for OT Consult:: Evaluate and Treat Any Restrictions?:: Wt Bearing as Tolerated 04/03/22 15:53 Consult to Physical Therapy [CONS] Routine Comment: Reason(s) for PT Consult:: Evaluate and Treat Any Restrictions?:: No Restrictions 04/03/22 15:54 Consult to Occupational Therapy [CONS] Routine Comment: Reason(s) for OT Consult:: Evaluate and Treat Any Restrictions?:: No Restrictions Consult to Social Worker Aide [CONS] Routine Comment: Reason for Consult:: Discharge Planning Needs 04/04/22 11:08 Consult to Social Worker Aide [CONS] Routine Comment: Reason for Consult:: Discharge Planning Needs Attending Physician on discharge: Abdoulaye Montesinos MD Date of Discharge: 04/06/22 DS: Diagnosis Discharge Diagnosis (1) Dyspnea: Status: Acute Problem details: - CHF exacerbation most likely, no evidence of acute infection or ACS, hyperthyroidism and atrial fibrillation also possibly contributing. Does have known pulmonary hypertension as well. Also aortic stenosis is worsening, now mild to moderate, previously mild. - lactate elevated in ED, improved after IVF administration. Normal WBC, no fever. Will defer empiric antibiotics at this time; low threshold to initiate if status changes - initially on IV diuresis with furosemide, transitioning to oral torsemide 04/03/2022. Continue with baseline spironolactone. (2) CHF (congestive heart failure): Status: Acute Problem details: - Certainly CHF exacerbation could be contributing to symptoms - most recent TTE below, will repeat tomorrow given change in status - given 1 dose of IV Lasix on admission, will continue home doses of torsemide and spironolactone Last TTE 08/2021: Final Impressions: 1. Normal LV size, normal wall thickness, hyperdynamic global systolic function with an estimated EF of 70 - 75%. 2. Right ventricular cavity size is severely enlarged, global systolic RV function is severely reduced. Austin's sign noted. 3. Severely enlarged left atrium. 4. The aortic valve is sclerotic and trileaflet, mild stenosis and trivial regurgitation. 5. Mild-moderate tricuspid regurgitation. 6. Moderately increased estimated pulmonary systolic pressures by tricuspid regurgitation velocity and right atrial pressure (~50 mmHg). 7. The inferior vena cava is dilated, respiratory size variation less than 50%, consistent with elevated right atrial pressure. Current transthoracic echocardiogram preliminary report essentially unchanged from previously. Aortic stenosis may have progressed. (3) Pulmonary hypertension: Status: Acute (4) Anxiety about health: Status: Acute Problem details: May have a primary anxiety disorder. Is on venlafaxine. Hyperthyroid state may be driving some of this as well. Does indeed have failing health as well. (5) Hyperthyroidism: Status: Acute Problem details: - patient's symptoms over the past few days are similar to what he has had in the past with hyperthyroidism - TSH is suppressed on admission; free T4 to be obtained tomorrow. Will increase methimazole dosing from 5 -->10mg (6) Non-insulin dependent diabetes mellitus: Status: Acute Problem details: - no recent outpatient A1c available for review; will obtain A1c - continue home meds, sliding scale insulin, Accu-Cheks (7) Stage III chronic kidney disease: Status: Acute Problem details: - noted, creatinine 1.6 on admission (baseline) (8) Essential hypertension: Status: Acute Problem details: - symptomatic with hypertension, also has history orthostatic hypotension and is on midodrine as an outpatient - hold midodrine, continue home dose of captopril, increase home dose of Methimazole obtain orthostatic blood pressures - we will also decrease his venlafaxine dose from 25 mg TID (looks like he takes this at 8am, noon, and 8pm at home) to once daily - add metoprolol succinate 12.5 mg orally once daily starting today (9) Seizure: Status: Acute Problem details: - during hospital stay 08/2021, none since - on Keppra as an outpatient, will continue this (10) Paroxysmal A-fib: Status: Acute Problem details: - was on Eliquis previously, unclear if he is on this now (presumably not, given 325 mg of aspirin daily) - will use Eliquis for prophylaxis during inpatient stay and hold ASA, request formal medication reconciliation through pharmacy (11) Weakness: Status: Acute DS: Summary Hospital Course Hospital Course: Robert Patricia is a 81 year old male who presented to the emergency room today for a 2 day history of feeling poorly.? Patient notes shortness of breath over the past 1-2 days, in addition to weakness.? This morning, he checked his blood pressure at home and SBP was >200.? He was concerned with this number so he called the [facility] nurses line, who recommended an ER visit. Kashif has not had any documented fevers, has had intermittent diaphoresis.? He also notes diffuse achiness in his low back and bilateral hips.? No abdominal pain, no melena. ER course and findings: ?- on arrival to his home, safety scientist gave him sublingual nitrogen x1 for chest pain.? Chest pain resolved upon arrival to the ER ?- headache on arrival, resolved with Tylenol? ?- rate controlled a fib on EKG (known history of paroxysmal AFib) ?- lactate 2.7, BNP 4900, negative troponin, negative CRP, negative D-dimer, normal CK In hospital we stopped his midodrine. Blood pressures remain modestly elevated the 140-160 range systolically. We initiated diuresis initially with IV furosemide, subsequently we switched to torsemide orally. He came in on torsemide 10 mg once daily. We increase the dose of his torsemide 20 mg orally once daily. During the course of the hospital stay he lost 5 kg. Weight remained stable at 102 kg on date of discharge. Echocardiogram performed during the course of his hospital stay demonstrated normal LV function with ejection fraction of 65-70%. Mild aortic stenosis. Trace mitral regurgitation. Moderate pulmonary hypertension with estimated pressures of 50 mmHg plus right atrial pressure. Patient quite anxious during his hospital stay. For while he refused to consider moving back to his assisted living setting at [place]. For while we looked for bed availability for him in a long-term setting. Eventually he changed his mind and is willing to go back to [place] with increased services. This is certainly plausible for him. He will continue with his home health aide and nursing services as already in place and we will add occupational therapy and physical therapy. Status at Discharge Overall status at discharge: patient is progressing back to baseline Time Spent with Patient Time attestation: Total time spent providing and/or coordinating discharge services: Time spent: Greater than 30 minutes Exam Narrative: Exam Narrative: Appears comfortable no acute distress.? Much less anxious.? In fact does not appear anxious at all today. Alert, oriented to self, place, time, situation.? Lungs with some fine end inspiratory rales otherwise clear.? Heart tones with regular rhythm.? Abdomen obese with active bowel sounds, soft nontender.? Trace edema pretibially bilaterally. Const: Vital Signs, click to edit/add: Vital Signs - 24 hr 04/05/22 19:00 04/05/22 23:00 04/05/22 23:00 Temperature 97.9 F Pulse Rate Pulse Rate [Left R adial] 62 Pulse Rate [Pulse Oximeter] 67 62 Respiratory Rate 18 16 Blood Pressure [Le ft Arm] 164/83 H Pulse Oximetry 96 91 Oxygen Delivery [facility] Room Air Room Air 04/05/22 23:00 04/06/22 01:44 04/06/22 03:00 Temperature 98.3 F 97.4 F L Pulse Rate 55 L Pulse Rate [Left R adial] 62 Pulse Rate [Pulse Oximeter] 66 Respiratory Rate 18 18 Blood Pressure [Le ft Arm] 166/89 H 181/90 H Pulse Oximetry 91 97 Oxygen Delivery Wy thod Room Air Room Air 04/06/22 08:00 04/06/22 07:00 04/06/22 08:00 Temperature 97.8 F Pulse Rate Pulse Rate [Left R adial] Pulse Rate [Pulse Oximeter] 65 65 Respiratory Rate 18 18 Blood Pressure [Le ft Arm] 176/117 H Pulse Oximetry 94 94 [facility] 04/06/22 11:00 Temperature 98.1 F Pulse Rate Pulse Rate [Left R adial] Pulse Rate [Pulse Oximeter] 70 Respiratory Rate 20 Blood Pressure [Le ft Arm] 161/75 H Pulse Oximetry 92 Oxygen Delivery Me thod Room Air Documenting provider has reviewed patient's vital signs: yes DS: Data Data Completed and Pending Labs on day of discharge: Labs from last 24 hours 04/06/22 05:52 Sodium 136 Potassium 4.4 Chloride 102 Carbon Dioxide 27 BUN 51 H Creatinine 1.6 H Estimated Creat Clear 36.75 Estimated GFR 43 Glucose 127 H Calcium 8.9 Phosphorus 4.7 H Albumin 4.1 Preliminary micro results at discharge 04/01/22 18:23 Blood Culture - Preliminary Blood NO GROWTH AFTER 96 HOURS 04/02/22 15:21 Blood Culture - Preliminary Blood NO GROWTH AFTER 72 HOURS 04/02/22 15:14 Blood Culture - Preliminary Blood NO GROWTH AFTER 72 HOURS 04/01/22 18:14 Blood Culture - Preliminary Blood Staphylococcus capitis Discharge Plan Discharge Disposition: Home, Self-Care Date of Admission: 04/05/22 17:06 Attending Provider on Discharge: Abdoulaye Montesinos Primary Care Provider: Provider,Not a Local Condition: Improved Anticipated Discharge Date/Time: 04/06/22 12:30 Discharge Medications: New torsemide 20 mg Tablet 20 mg PO DAILY@0800 30 Days Qty: 30 0RF methimazole 5 mg Tablet 10 mg PO DAILY 30 Days Qty: 60 0RF metoprolol succinate 25 mg Tablet Extended Release 24 Hr 12.5 mg PO DAILY 30 Days Qty: 15 1RF Continued levetiracetam [Keppra] 500 mg tablet 500 mg PO Q12H Label Comments: 1 tablet by mouth twice a day cyanocobalamin (vitamin B-12) [Vitamin B-12] 1,000 mcg tablet 1,000 mcg PO DAILY Label Comments: 1 tablet by mouth once a day spironolactone 25 mg tablet 12.5 mg PO DAILY Label Comments: 12.5 mg by mouth once a day captopril 12.5 mg tablet 12.5 mg PO BID aspirin 325 mg tablet,delayed release (DR/EC) 325 mg PO DAILY Label Comments: 1 tablet by mouth once a day ferrous sulfate 325 mg (65 mg iron) tablet 325 mg PO DAILY Label Comments: 1 tablet by mouth once a day nitroglycerin 0.4 mg tablet, sublingual 0.8 mg sublingual Q5M PRN Label Comments: 1 tablet under tongue as needed folic acid 1 mg tablet 1 mg PO DAILY Label Comments: 1 tablet by mouth once a day albuterol sulfate 90 mcg/actuation HFA aerosol inhaler 2 puff INHALATION Q4H PRN (Reason: bronchospasm) Label Comments: 2 puff using inhaler every four hours as needed fluticasone propionate 50 mcg/actuation spray,suspension 1 spray INTRANASAL DAILY Label Comments: 1 spray into both nostrils once a day [place] Nasal 0.65 % aerosol,spray 1 spray INTRANASAL Q12H Label Comments: 1 spray into both nostrils twice a day Rx Instructions: takes at 8am, 8pm budesonide-formoterol [Symbicort] 160-4.5 mcg/actuation HFA aerosol inhaler 2 puff INHALATION Q12H Label Comments: 2 puff using inhaler twice a day Jardiance 25 mg tablet 12.5 mg PO DAILY Label Comments: 12.5 mg by mouth once a day lidocaine 5 % adhesive patch,medicated 3 patch topical DAILY Rx Instructions: leave on most painful area for up to 12 hrs acetaminophen 500 mg tablet 1,000 mg PO TID Label Comments: 1000 mg by mouth three times a day Rx Instructions: takes at 8am, 2pm, 8pm triamcinolone acetonide 0.1 % lotion 1 applic topical BID PRN Rx Instructions: ITCHY LEGS diclofenac sodium 1 % gel 2 g topical Q6H PRN Rx Instructions: apply to single elbow, wrist or hand; for hand includes palm/fingers/back of hand venlafaxine 50 mg tablet 25 mg PO TID@08,12,20 omeprazole 20 mg capsule,delayed release(DR/EC) 20 mg PO DAILY melatonin 3 mg capsule 3 mg PO HS methocarbamol 500 mg tablet 500 mg PO TID PRN calcitonin (salmon) 200 unit/actuation spray,non-aerosol 1 spray intranasal (ALT) DAILY gabapentin 100 mg capsule 200 mg PO HS guaifenesin [Chest Congestion Relief] 100 mg/5 mL liquid 200 mg PO Q4H PRN Discontinued midodrine 5 mg tablet 5 mg PO BID@08,12 Rx Instructions: takes at 8am and noon torsemide 10 mg tablet 10 mg PO DAILY Label Comments: 1 tablet by mouth once a day methimazole 5 mg tablet 5 mg PO DAILY Label Comments: 1 tablet by mouth once a day Discharge Orders: Discharge Order (Routine); Ordered 04/06/22 Ordered By: Abdoulaye Montseinos Patient Education: Hyperthyroidism (GEN), Pulmonary Arterial Hypertension (GEN) Additional Instructions: 1. Continue with home care and nursing support; 2. PT and OT referral to evaluate and treat in home; 3. Daily weight; 4. Follow-up with primary care physician in 5-10 days; 5. On-going management of hyperthyroid state with primary care physician. Activity Level: Activity as Tolerated, Use Walker and Other Activity Detail: Use electric scooter for locomotion for longer distances Discharge Diet: 2 gm Sodium Follow Up Appointments: Margaux Saldivar MD [Other] - 04/11/22 11:30 am Forms: [employer] Info Instructions
== END 2022-04-06 15:05 | disposition home or self-care (01) | DRG 291 ==
LOC: ED 15:37 → MEDSURG 17:14
PROVIDERS: Family Medicine; Admitting Provider Internal Medicine; Emergency Provider Family Medicine; Visit Provider Internal Medicine
DX: I13.0 Hypertensive heart and chronic kidney disease with heart failure and stage 1 through stage 4 chronic kidney disease, or unspecified chronic kidney disease (principal); I50.23 Acute on chronic systolic (congestive) heart failure; E87.1 Hypo-osmolality and hyponatremia; I48.0 Paroxysmal atrial fibrillation; N18.30 Chronic kidney disease, stage 3 unspecified; I27.20 Pulmonary hypertension, unspecified; E05.90 Thyrotoxicosis, unspecified without thyrotoxic crisis or storm; E11.22 Type 2 diabetes mellitus with diabetic chronic kidney disease; Z79.4 Long term (current) use of insulin; R53.1 Weakness; F31.9 Bipolar disorder, unspecified; F41.9 Anxiety disorder, unspecified; I25.10 Atherosclerotic heart disease of native coronary artery without angina pectoris; R56.9 Unspecified convulsions; G89.29 Other chronic pain; M54.9 Dorsalgia, unspecified; J44.9 Chronic obstructive pulmonary disease, unspecified; E78.5 Hyperlipidemia, unspecified
CPT/HCPCS: 36415; 71045; 80048; 80053; 80069; 80076; 81001; 82550; 82803; 82962; 83036; 83605; 83735; 83880; 84100; 84439; 84443; 84484; 85025; 85027; 85651; 86140; 87040; 87086; 87186; 87502; 87634; 87635; 93005; 93306; 94761; 97110; 97116; 97162; 97166; 97530; 97535; 99284; 99285; G0378; A9270; J1200; J1940; J3370; J7030; J7050; J7120

== ENCOUNTER 2022-04-07 11:03 | Emergency (ER) | payer OTHER, SELFPAY ==
[2022-04-07 11:15] VITALS: BP 122/87; PULSE 73; RESP 20; TEMP 36.2; O2SAT 98; BMI 32.1
--- NOTE | 2022-04-07 11:37 | XR_ITS ---
Patient: BRAVO BRUMFIELD Facility:?[facility] Patient ID:?[id number] Site Patient ID:?[id number]. Site :?[id number] Study:?XRay-Chest AP & LAT-04/07/2022 12:38:52 PM Ordering Physician:ION Final Report: INDICATION: Dyspnea COMPARISON: April 01, 2022 TECHNIQUE: AP sitting and sitting lateral views of the chest were acquired FINDINGS: TUBES AND LINES: None. HEART AND MEDIASTINUM: Unchanged enlargement of the heart. LUNGS AND PLEURAL SPACES: Given poor expiratory effort, the lungs appear to be clearthe pleural spaces are unremarkable. OSSEOUS STRUCTURES: Age-appropriate appearance. No acute focal finding. IMPRESSION: Enlarged heart. Given poor inspiratory effort, the lungs appear to be clear. Dictated by Costa Aguila MD @ 04/07/2022 12:45:02 PM Signed by:?Costa Aguila MD @04/07/2022 12:45:02 PM (Electronic Signature)
[2022-04-07] MEDS: SODIUM CHLORIDE 0.9 % (FLUSH) 10 ML SYRINGE 5 ML IVF (11:55)
[2022-04-07] MEDS: LORazepam 2 MG/ML inj 0.5 MG IV (11:59)
[2022-04-07 12:05] LABS: Troponin, Point-of-Care* 0.01 ng/ml (0.01-0.04)
[2022-04-07 12:50] LABS: Lactate* 1.6 mmol/L (0.5-1.9)
--- NOTE | 2022-04-07 12:53 | ED.GENADULT ---
HPI - General Adult General Chief complaint: Shortness of Breath/Dyspnea Stated complaint: neck pain Time Seen by Provider: 04/07/22 11:22 Source: patient Limitations: no limitations History of Present Illness HPI narrative: Patient is an 81-year-old male history of congestive heart failure atrial fibrillation who was just hospitalized for 5 days and sent home yesterday presents today with shortness of breath, difficulty breathing and pain from ?top of my head to the bottom of my toes?. Patient states that he was having breakfast this morning and was feeling normal when all of a sudden he passed out in his chair and slumped over to 1 side when he came to he was very disoriented and stay disoriented for several minutes. He then started complaining that he could not breathe and he began crying and he was transferred to the ER for evaluation. Upon arrival patient is hyperventilating and very tearful. He tells me that he can not breathe and that his entire body hurts. Related Data Home Medications Medication Instructions Recorded Confirmed acetaminophen 500 mg tablet 1,000 mg PO TID 01/23/22 04/07/22 albuterol sulfate 90 mcg/actuation 2 puff inhalation Q4H PRN 01/23/22 04/07/22 aerosol inhaler bronchospasm aspirin 325 mg tablet,delayed 325 mg PO DAILY 01/23/22 04/07/22 release budesonide-formoterol HFA 160 2 puff inhalation Q12H 01/23/22 04/07/22 mcg-4.5 mcg/actuation aerosol inhaler (Symbicort) captopril 12.5 mg tablet 12.5 mg PO BID 01/23/22 04/07/22 cyanocobalamin (vitamin B-12) 1,000 mcg PO DAILY 01/23/22 04/07/22 1,000 mcg tablet (Vitamin B-12) diclofenac sodium 1 % topical gel 2 g topical Q6H PRN 01/23/22 04/07/22 empagliflozin 25 mg tablet 12.5 mg PO DAILY 01/23/22 04/07/22 (Jardiance) ferrous sulfate 325 mg (65 mg 325 mg PO DAILY 01/23/22 04/07/22 iron) tablet fluticasone propionate 50 1 spray intranasal DAILY 01/23/22 04/07/22 mcg/actuation nasal spray,suspension folic acid 1 mg tablet 1 mg PO DAILY 01/23/22 04/07/22 levetiracetam 500 mg tablet 500 mg PO Q12H 8 am and 8 pm 01/23/22 04/07/22 (Keppra) lidocaine 5 % topical patch 3 patch topical DAILY 01/23/22 04/07/22 nitroglycerin 0.4 mg sublingual 0.8 mg sublingual Q5M PRN 01/23/22 04/07/22 tablet sodium chloride 0.65 % nasal spray 1 spray intranasal Q12H 01/23/22 04/07/22 aerosol ([place] Nasal) spironolactone 25 mg tablet 12.5 mg PO DAILY 01/23/22 04/07/22 triamcinolone acetonide 0.1 % 1 applic topical BID PRN 01/23/22 04/07/22 lotion calcitonin (salmon) 200 1 spray intranasal (ALT) DAILY 04/02/22 04/07/22 unit/actuation nasal spray gabapentin 100 mg capsule 200 mg PO HS 04/02/22 04/07/22 guaifenesin 100 mg/5 mL oral 200 mg PO Q4H PRN 04/02/22 04/07/22 liquid (Chest Congestion Relief) melatonin 3 mg capsule 3 mg PO HS 04/02/22 04/07/22 methocarbamol 500 mg tablet 500 mg PO TID PRN 04/02/22 04/07/22 omeprazole 20 mg capsule,delayed 20 mg PO DAILY 04/02/22 04/07/22 release venlafaxine 50 mg tablet 25 mg PO TID@08,12,20 04/02/22 04/07/22 Previous Rx's Medication Instructions Recorded methimazole 5 mg tablet 10 mg PO DAILY 30 days #60 tabs 04/06/22 metoprolol succinate 25 mg 12.5 mg PO DAILY 30 days #15 tabs 04/06/22 tablet,extended release 24 hr torsemide 20 mg tablet 20 mg PO DAILY@0800 30 days #30 04/06/22 tabs Allergies Allergy/AdvReac Type Severity Reaction Status Date / Time adhesive Allergy Verified 04/07/22 11:19 Latex, Natural Rubber Allergy Verified 04/07/22 11:19 lisinopril Allergy Verified 04/07/22 11:19 oxycodone Allergy Verified 04/07/22 11:19 Review of Systems Status of ROS: Reports: 10 or more systems reviewed and unremarkable except as noted in History and below Narrative: Patient is complaining of headache, shortness of breath, chest pain, abdominal pain, extremity pain. He states that his whole body feels like it is going to explode. [facility] Medical History BPH (benign prostatic hyperplasia) Carotid stenosis CHF (congestive heart failure) COPD (chronic obstructive pulmonary disease) Essential hypertension Hyperthyroidism Non-insulin dependent diabetes mellitus Paroxysmal A-fib Seizure Stage III chronic kidney disease Surgical History H/O hernia repair History of carotid angioplasty History of intestinal surgery Social History Narrative: , 3 adult children. Daughter Georgina is in [place] and medical decision maker. Lives at [facility] in [place]. Uses electric scooter for long distance movement. Has a nurse who sets up his daily medications. Retired and alfar[employer]. Would only want to be Full Code long enough to have his children see him to say Goodbye, does not otherwise desire aggressive Full Code status. Quit smoking >50 years ago, no ETOH use. Highest level of school completed/degree received: high school graduate Smoking Status: Former smoker How often do you have a drink containing alcohol: never AUDIT-C Alcohol total score: 0 Non-prescribed substance use: denies use Caffeine: No service: Yes Exam Narrative: Exam Narrative: Overweight well-developed patient who is breathing rapidly and is very tearful. Alert and oriented x3. I am able to assure the patient that his blood pressure is normal and that his oxygen levels are normal and that he is indeed breathing even though he feels like he is not breathing at all. He does begin to calm down during this conversation and his hyperventilation does stop. HEENT: Normocephalic atraumatic. Pupils are equally round reactive to light. Extraocular muscles are intact. Conjunctivae are moist without any icterus noted. Moist mucous membranes. Cardiovascular: Irregularly irregular. Lungs: Bibasilar end-expiratory crackles. Abdomen: Soft and nontender nondistended with normal bowel sounds. No guarding or rebound. No masses or organomegaly appreciated. Extremities: Bilateral lower extremities are without edema. Skin: Well perfused without any obvious rashes. Const: Vital Signs, click to edit/add: Vital Signs - 24 hr 04/07/22 11:15 Temperature 97.2 F L Pulse Rate [Right Pulse Oximeter] 73 Respiratory Rate 20 Blood Pressure [Ri ght Upper Arm] 122/87 Pulse Oximetry 98 Oxygen Delivery Me thod Room Air Course Course Hospital Course: IV was started and patient received 0.5 mg of IV of Ativan. This calmed him down quite a bit and resolved his symptoms. His pain from head to toe resolved and he felt like he could breathe again. I did proceed with blood work and did not find anything that was remarkable. His creatinine slightly elevated which appears to be around his baseline. His BNP slightly elevated as well which again not above where he usually sits. There is no evidence of worsening congestive heart failure on exam nor on chest x-ray. EKG, read by me, shows atrial fibrillation that is rate controlled. I discussed all the findings with the patient and his granddaughter. Patient was reassured and felt relief. He stated that perhaps he just panicked this morning. Vital Signs Vital signs: Initial Vital Signs Temperature 97.2 F L 04/07/22 11:15 Temperature Source Temporal Artery Scan 04/07/22 11:15 Pulse Rate 73 04/07/22 11:15 Respiratory Rate 20 04/07/22 11:15 Blood Pressure 122/87 04/07/22 11:15 Blood Pressure Mean 98 04/07/22 11:15 Blood Pressure Position Sitting 04/07/22 11:15 Pulse Oximetry 98 04/07/22 11:15 Oxygen Delivery Method 04/07/22 11:15 Vital Signs Temperature 97.2 F L 04/07/22 11:15 Pulse Rate 73 04/07/22 11:15 Respiratory Rate 20 04/07/22 11:15 Blood Pressure 122/87 04/07/22 11:15 Pulse Oximetry 98 04/07/22 11:15 Oxygen Delivery Method 04/07/22 11:15 Temperature 97.2 F L 04/07/22 11:15 Pulse Rate 73 04/07/22 11:15 Respiratory Rate 20 04/07/22 11:15 Blood Pressure 122/87 04/07/22 11:15 Pulse Oximetry 98 04/07/22 11:15 Oxygen Delivery Method 04/07/22 11:15 Medical Decision Making MDM Narrative Medical decision making narrative: 81-year-old male with an episode of syncope followed by panic attack. Workup unremarkable today. He does have follow-up appointment on Sunday already scheduled he is encouraged to keep. I do recommend that family surround him over the weekend. Differential diagnoses considered during this stay included coronary artery disease, congestive heart failure, arrhythmias, seizure. Medical Records Medical records reviewed: Yes I reviewed the patient's medical records Lab Data Lab results reviewed: Yes I reviewed the patient's lab results Labs: Lab Results 04/07/22 04/07/22 04/07/22 Range/Units 11:30 11:30 11:30 WBC 11.06 H (4.50-11.00) K/uL RBC 4.92 (4.30-5.90) m/uL Hgb 14.1 (13.5-17.5) gm/dL Hct 43.5 (37.0-53.0) % MCV 88 (80-100) fL MCH 29 (26-34) pg MCHC 32 (32-36) gm/dL RDW Coeff of Gilbert 13.1 (11.5-15.5) % Plt Count 275 (140-440) K/uL Neut % (Auto) 73.5 H (42.0-72.0) % Lymph % (Auto) 14.6 L (20-44) % Edwards % (Auto) 9.8 (0.0-11.0) % Eos % (Auto) 1.4 (0.0-7.0) % Baso % (Auto) 0.3 (0.0-3.0) % Neut # (Auto) 8.10 H (1.7-7.0) K/uL Lymph # (Auto) 1.60 (0.90-2.90) K/uL Edwards # (Auto) 1.10 H (0.00-0.90) K/UL Eos # (Auto) 0.20 (0.00-0.50) K/uL Baso # (Auto) 0.00 (0.00-0.30) K/uL ESR 10 (2-15) mm/hr Sodium 136 (135-149) mmol/L Potassium 4.1 (3.6-5.1) mmol/L Chloride 101 (96-114) mmol/L Carbon Dioxide 24 (20-32) mmol/L BUN 52 H (7-30) mg/dL Creatinine 1.6 H (0.5-1.5) mg/dL Estimated Creat Clear 36.75 Estimated GFR 43 ml/min Glucose 99 (60-115) mg/dL Lactate (0.5-1.9) mmol/L Calcium 9.1 (8.4-10.6) mg/dL C-Reactive Protein < 0.5 L (0.5-1.0) mg/dL NT-Pro-B Natriuret Pep 3430 pg/mL SARS-CoV-2 (PCR) (Negative) Influenza Type A (PCR) (Negative) Influenza Type B (PCR) (Negative) RSV (PCR) (Negative) POC Troponin I (0.01-0.04) ng/ml 04/07/22 04/07/22 04/07/22 Range/Units 11:37 12:38 12:40 WBC (4.50-11.00) K/uL RBC (4.30-5.90) m/uL Hgb (13.5-17.5) gm/dL Hct (37.0-53.0) % MCV (80-100) fL MCH (26-34) pg MCHC (32-36) gm/dL RDW Coeff of Gilbert (11.5-15.5) % Plt Count (140-440) K/uL Neut % (Auto) (42.0-72.0) % Lymph % (Auto) (20-44) % Edwards % (Auto) (0.0-11.0) % Eos % (Auto) (0.0-7.0) % Baso % (Auto) (0.0-3.0) % Neut # (Auto) (1.7-7.0) K/uL Lymph # (Auto) (0.90-2.90) K/uL Edwards # (Auto) (0.00-0.90) K/UL Eos # (Auto) (0.00-0.50) K/uL Baso # (Auto) (0.00-0.30) K/uL ESR (2-15) mm/hr Sodium (135-149) mmol/L Potassium (3.6-5.1) mmol/L Chloride (96-114) mmol/L Carbon Dioxide (20-32) mmol/L BUN (7-30) mg/dL Creatinine (0.5-1.5) mg/dL Estimated Creat Clear Estimated GFR ml/min Glucose (60-115) mg/dL Lactate 1.6 (0.5-1.9) mmol/L Calcium (8.4-10.6) mg/dL C-Reactive Protein (0.5-1.0) mg/dL NT-Pro-B Natriuret Pep pg/mL SARS-CoV-2 (PCR) Negative SARS-CoV-2 (Negative) Influenza Type A (PCR) Negative PCR FLU A (Negative) Influenza Type B (PCR) Negative PCR FLU B (Negative) RSV (PCR) Negative PCR RSV (Negative) POC Troponin I 0.01 (0.01-0.04) ng/ml Imaging Data Chest x-ray: Attestation: I have reviewed the pertinent imaging results. Radiologist's impression: AP sitting and sitting lateral views of the chest were acquired FINDINGS: TUBES AND LINES: None. HEART AND MEDIASTINUM: Unchanged enlargement of the heart. LUNGS AND PLEURAL SPACES: Given poor expiratory effort, the lungs appear to be clearthe pleural spaces are unremarkable. OSSEOUS STRUCTURES: Age-appropriate appearance. No acute focal finding. IMPRESSION: Enlarged heart. Given poor inspiratory effort, the lungs appear to be clear. ECG Data Attestation: I personally reviewed and interpreted this ECG as follows: Discharge Plan Discharge Clinical Impression: Syncope, Panic attack Patient Disposition: Home, Self-Care Condition: Improved Additional Instructions: Your workup today was unremarkable. There is no evidence of any heart disease or congestive heart failure that is worsening today. It does appear that he likely had a panic attack which was treated with an anti anxiety medication in the emergency room. Recommend you keep your follow-up appointment on Sunday. Make sure your rest and eat nutritious meals over the weekend. Recommend that you spend time with family as well. Prescriptions: No Action levetiracetam [Keppra] 500 mg tablet 500 mg PO Q12H Label Comments: 1 tablet by mouth twice a day cyanocobalamin (vitamin B-12) [Vitamin B-12] 1,000 mcg tablet 1,000 mcg PO DAILY Label Comments: 1 tablet by mouth once a day spironolactone 25 mg tablet 12.5 mg PO DAILY Label Comments: 12.5 mg by mouth once a day captopril 12.5 mg tablet 12.5 mg PO BID aspirin 325 mg tablet,delayed release (DR/EC) 325 mg PO DAILY Label Comments: 1 tablet by mouth once a day ferrous sulfate 325 mg (65 mg iron) tablet 325 mg PO DAILY Label Comments: 1 tablet by mouth once a day nitroglycerin 0.4 mg tablet, sublingual 0.8 mg sublingual Q5M PRN Label Comments: 1 tablet under tongue as needed folic acid 1 mg tablet 1 mg PO DAILY Label Comments: 1 tablet by mouth once a day albuterol sulfate 90 mcg/actuation HFA aerosol inhaler 2 puff INHALATION Q4H PRN (Reason: bronchospasm) Label Comments: 2 puff using inhaler every four hours as needed fluticasone propionate 50 mcg/actuation spray,suspension 1 spray INTRANASAL DAILY Label Comments: 1 spray into both nostrils once a day [place] Nasal 0.65 % aerosol,spray 1 spray INTRANASAL Q12H Label Comments: 1 spray into both nostrils twice a day Rx Instructions: takes at 8am, 8pm budesonide-formoterol [Symbicort] 160-4.5 mcg/actuation HFA aerosol inhaler 2 puff INHALATION Q12H Label Comments: 2 puff using inhaler twice a day Jardiance 25 mg tablet 12.5 mg PO DAILY Label Comments: 12.5 mg by mouth once a day lidocaine 5 % adhesive patch,medicated 3 patch topical DAILY Rx Instructions: leave on most painful area for up to 12 hrs acetaminophen 500 mg tablet 1,000 mg PO TID Label Comments: 1000 mg by mouth three times a day Rx Instructions: takes at 8am, 2pm, 8pm triamcinolone acetonide 0.1 % lotion 1 applic topical BID PRN Rx Instructions: ITCHY LEGS diclofenac sodium 1 % gel 2 g topical Q6H PRN Rx Instructions: apply to single elbow, wrist or hand; for hand includes palm/fingers/back of hand venlafaxine 50 mg tablet 25 mg PO TID@08,12,20 omeprazole 20 mg capsule,delayed release(DR/EC) 20 mg PO DAILY melatonin 3 mg capsule 3 mg PO HS methocarbamol 500 mg tablet 500 mg PO TID PRN calcitonin (salmon) 200 unit/actuation spray,non-aerosol 1 spray intranasal (ALT) DAILY gabapentin 100 mg capsule 200 mg PO HS guaifenesin [Chest Congestion Relief] 100 mg/5 mL liquid 200 mg PO Q4H PRN torsemide 20 mg Tablet 20 mg PO DAILY@0800 30 Days Qty: 30 0RF methimazole 5 mg Tablet 10 mg PO DAILY 30 Days Qty: 60 0RF metoprolol succinate 25 mg Tablet Extended Release 24 Hr 12.5 mg PO DAILY 30 Days Qty: 15 1RF Follow Up/Referrals: Provider,Not a Local [Primary Care Provider] - Stand Alone Forms: MyHealth Info Instructions
[2022-04-07 12:59] LABS: Basophils Percent Auto 0.3 % (0.0-3.0); Eosinophils Percent Auto 1.4 % (0.0-7.0); Hematocrit 43.5 % (37.0-53.0); Hemoglobin* 14.1 gm/dL (13.5-17.5); Immature Granulocytes Pct Auto 0.4 %; Lymphocytes Percent Auto 14.6 % (20-44); Mean Corpuscular HGB Conc 32 gm/dL (32-36); Mean Corpuscular Hemoglobin 29 pg (26-34); Mean Corpuscular Volume 88 fL (80-100); Monocytes Percent Auto 9.8 % (0.0-11.0); Neutrophils Percent Auto 73.5 % (42.0-72.0); Platelet Count* 275 K/uL (140-440); RDW Coefficient of Variation % 13.1 % (11.5-15.5); Red Blood Count 4.92 m/uL (4.30-5.90); White Blood Count* 11.06 K/uL (4.50-11.00)
[2022-04-07 13:02] LABS: Slide Review Reflex No
[2022-04-07 13:18] LABS: Chloride* 101 mmol/L (96-114); Potassium* 4.1 mmol/L (3.6-5.1); Sodium* 136 mmol/L (135-149)
[2022-04-07 13:21] LABS: Blood Urea Nitrogen* 52 mg/dL (7-30); Carbon Dioxide* 24 mmol/L (20-32); Creatinine* 1.6 mg/dL (0.5-1.5); Est. Creatinine Clearance* 36.75; Estimated Glomerular Filt Rate 43 ml/min
[2022-04-07 13:22] LABS: Calcium* 9.1 mg/dL (8.4-10.6); Glucose* 99 mg/dL (60-115)
[2022-04-07 13:31] LABS: PCR FLU A Negative PCR FLU A (Negative); PCR FLU B Negative PCR FLU B (Negative); PCR RSV Negative PCR RSV (Negative)
[2022-04-07 13:34] LABS: C Reactive Protein* < 0.5 mg/dL (0.5-1.0)
[2022-04-07 13:34] LABS: SARS PCR* Negative SARS-CoV-2 (Negative)
[2022-04-07 14:20] LABS: Erythrocyte SedimentationRate* 10 mm/hr (2-15)
[2022-04-07 14:30] LABS: NT Pro B Type NatriureticPept* 3430 pg/mL
== END 2022-04-07 15:46 | disposition home or self-care (01) ==
PROVIDERS: Emergency Provider Family Medicine
DX: R55 Syncope and collapse (principal); F41.0 Panic disorder [episodic paroxysmal anxiety]
CPT/HCPCS: 36415; 71046; 80048; 83605; 83880; 84484; 85025; 85651; 86140; 87502; 87634; 87635; 93005; 94761; 96374; 99284; 99285; J2060

== ENCOUNTER 2022-04-11 09:36 | Emergency (ER) | payer OTHER, SELFPAY ==
[2022-04-11] VITALS (11 sets, daily range): BP systolic 166–192; BP diastolic 71–90; PULSE 62–73; RESP 18–32; TEMP 36.2; O2SAT 96–100; BMI 32.1
--- NOTE | 2022-04-11 09:57 | ED_ITS ---
HPI - General Adult General Time Seen by Provider: 09:57 Date Seen: 04/11/22 Chief complaint: Shortness of Breath/Dyspnea Stated complaint: In and out of consciousness Time Seen by Provider: 04/11/22 09:48 Source: patient, RN notes reviewed and old records reviewed Mode of arrival: EMS Limitations: no limitations History of Present Illness HPI narrative: Patient is an 81-year-old male reportedly stating that he is going in and out of consciousness. He is reporting severe headaches or pain in his head that is coming intermittently. He will get pain in his neck and then it will go into his head. He states when the pain is severe he can not talk to anybody. He states he can still hear people talking to him and is aware what is going on but he cannot talk. Nursing staff state it seems like he drifts in and out but he tells me he can hear everybody. He was supposed to be going to [place] for a cardiac check[place] today. He has underlying atrial fibrillation. He also reports he has congestive heart failure. He had 2 fleeting episodes of some mild chest pain at home today but it is nothing like the chest pain he will sometimes feel. He states he has had a bad cold for about a month but denies any fevers or any significant shortness of breath. He states he has not had a headache for about 20 years. When I am talking to him, I ask if the pain is coming from the base of his neck and he states it indeed is and then will shoot into the head, when he is having the bad head pain, the neck will hurt quite a bit too. He had a recent ED visit with a panic attack that I have reviewed. Related Data Home Medications Medication Instructions Recorded Confirmed acetaminophen 500 mg tablet 1,000 mg PO TID 01/23/22 04/07/22 albuterol sulfate 90 mcg/actuation 2 puff inhalation Q4H PRN 01/23/22 04/07/22 aerosol inhaler bronchospasm aspirin 325 mg tablet,delayed 325 mg PO DAILY 01/23/22 04/07/22 release budesonide-formoterol HFA 160 2 puff inhalation Q12H 01/23/22 04/07/22 mcg-4.5 mcg/actuation aerosol inhaler (Symbicort) captopril 12.5 mg tablet 12.5 mg PO BID 01/23/22 04/07/22 cyanocobalamin (vitamin B-12) 1,000 mcg PO DAILY 01/23/22 04/07/22 1,000 mcg tablet (Vitamin B-12) diclofenac sodium 1 % topical gel 2 g topical Q6H PRN 01/23/22 04/07/22 empagliflozin 25 mg tablet 12.5 mg PO DAILY 01/23/22 04/07/22 (Jardiance) ferrous sulfate 325 mg (65 mg 325 mg PO DAILY 01/23/22 04/07/22 iron) tablet fluticasone propionate 50 1 spray intranasal DAILY 01/23/22 04/07/22 mcg/actuation nasal spray,suspension folic acid 1 mg tablet 1 mg PO DAILY 01/23/22 04/07/22 levetiracetam 500 mg tablet 500 mg PO Q12H 8 am and 8 pm 01/23/22 04/07/22 (Keppra) lidocaine 5 % topical patch 3 patch topical DAILY 01/23/22 04/07/22 nitroglycerin 0.4 mg sublingual 0.8 mg sublingual Q5M PRN 01/23/22 04/07/22 tablet sodium chloride 0.65 % nasal spray 1 spray intranasal Q12H 01/23/22 04/07/22 aerosol ([place] Nasal) spironolactone 25 mg tablet 12.5 mg PO DAILY 01/23/22 04/07/22 triamcinolone acetonide 0.1 % 1 applic topical BID PRN 01/23/22 04/07/22 lotion calcitonin (salmon) 200 1 spray intranasal (ALT) DAILY 04/02/22 04/07/22 unit/actuation nasal spray gabapentin 100 mg capsule 200 mg PO HS 04/02/22 04/07/22 guaifenesin 100 mg/5 mL oral 200 mg PO Q4H PRN 04/02/22 04/07/22 liquid (Chest Congestion Relief) melatonin 3 mg capsule 3 mg PO HS 04/02/22 04/07/22 methocarbamol 500 mg tablet 500 mg PO TID PRN 04/02/22 04/07/22 omeprazole 20 mg capsule,delayed 20 mg PO DAILY 04/02/22 04/07/22 release venlafaxine 50 mg tablet 25 mg PO TID@08,12,20 04/02/22 04/07/22 Previous Rx's Medication Instructions Recorded methimazole 5 mg tablet 10 mg PO DAILY 30 days #60 tabs 04/06/22 metoprolol succinate 25 mg 12.5 mg PO DAILY 30 days #15 tabs 04/06/22 tablet,extended release 24 hr torsemide 20 mg tablet 20 mg PO DAILY@0800 30 days #30 04/06/22 tabs Allergies Allergy/AdvReac Type Severity Reaction Status Date / Time adhesive Allergy Verified 04/11/22 10:07 Latex, Natural Rubber Allergy Verified 04/11/22 10:07 lisinopril Allergy Verified 04/11/22 10:07 oxycodone Allergy Verified 04/11/22 10:07 Review of Systems Status of ROS: Reports: 10 or more systems reviewed and unremarkable except as noted in History and below [facility] Medical History BPH (benign prostatic hyperplasia) Carotid stenosis CHF (congestive heart failure) COPD (chronic obstructive pulmonary disease) Essential hypertension Hyperthyroidism Non-insulin dependent diabetes mellitus Paroxysmal A-fib Seizure Stage III chronic kidney disease Surgical History H/O hernia repair History of carotid angioplasty History of intestinal surgery Social History Narrative: , 3 adult children. Daughter Georgina is in [place] and medical decision maker. Lives at [facility] in [place]. Uses electric scooter for long distance movement. Has a nurse who sets up his daily medications. Retired and alfaro. Would only want to be Full Code long enough to have his children see him to say Goodbye, does not otherwise desire aggressive Full Code status. Quit smoking >50 years ago, no ETOH use. Highest level of school completed/degree received: high school graduate Smoking Status: Former smoker How often do you have a drink containing alcohol: never AUDIT-C Alcohol total score: 0 Non-prescribed substance use: denies use Caffeine: No service: Yes Exam Const: Vital Signs, click to edit/add: Vital Signs - 24 hr 04/11/22 09:58 04/11/22 09:57 Temperature 97.2 F L Pulse Rate [Right] 71 Respiratory Rate 18 Blood Pressure [Le ft Upper Arm] 166/84 H Pulse Oximetry 97 100 Oxygen Delivery Me thod Room Air Documenting provider has reviewed patient's vital signs: yes Common normals: no apparent distress, average body habitus, oriented x3, no limitations, healthy appearing and alert General appearance: cooperative, comfortable, well kempt and well developed HENMT: Common normals: normocephalic, head/scalp atraumatic, hearing grossly normal bilaterally, external nose normal, nasal mucous membranes and turbinates normal, moist oral mucous membranes and oropharynx normal Head and scalp: normocephalic and atraumatic Nose: external nose normal and nasal mucous membranes and turbinates normal Eye: Common normals: PERRL, EOMs intact bilaterally, conjunctivae normal and no scleral icterus Conjunctiva: conjunctiva(e) normal Pupil: PERRL Neck & C-Spine: Common normals: full ROM, no lymphadenopathy, supple, no meningeal signs, no JVD and thyroid normal Thyroid: thyroid normal Chest: Common normals: inspection of chest normal Resp: Common normals: normal respiratory effort, no retractions, no use of accessory muscles and clear to auscultation bilaterally Auscultation: clear to auscultation bilaterally Cardio: Common normals: no JVD, S1 normal heart sound, S2 normal heart sound, no gallops, no clicks and no murmurs Rhythm: abnormal rhythm irregularly irregular Heart sounds: S1 normal and S2 normal GI: Common normals: Normal to inspection, nondistended, normoactive bowel sounds present, soft to palpation, non-tender, no hepatosplenomegaly and no masses Palpation: soft and no hepatosplenomegaly Extremity: Common normals: normal to inspection, full ROM, normal capillary refill, no joint enlargement, no clubbing, cyanosis or edema and no calf tenderness Neuro: Common normals: oriented x3, CN's II-XII intact bilaterally, moves all extremities, no focal motor deficits and no sensory deficits noted Sensorium/orientation: alert Meningeal signs: no meningeal signs Speech: speech normal Psych: Appearance: well kempt Course Course Hospital Course: It does not seem by my history taking that this is true syncope but he does carry diagnosis of that. He readily admits that he is aware and can hear people talking but the pain is just causing him to not be able to respond. As severe intermittent shooting pain from the neck area does make me think of in a occipital neuralgia. Given his age, will look at other comorbidities and do head CT, cervical spine CT. There was a question of him falling back maybe in his wheelchair this morning. This was him falling backwards into the wall. Will get full complement of labs, look at portable chest x-ray to make sure his Ca Te is stable. Will look at cardiac labs including troponin. I do believe anxiety is at play here, shortly after I did see him and his daughter reportedly arrived after that, nursing staff stated his daughter was coming out talking about him not being able to breathe but is O2 sats being 100%. She then was coming out stating he was having chest pain. Nursing staff was able to redirect him and calm him down. Reevaluation(s) Reevaluation #1: Reviewed with patient and his daughter that his labs are looking reassuring. We are waiting radiology reading of his scans. He now is complaining of full right-sided pain. His daughter wanted to know what that might be. Reviewed with her it is difficult to come up with a solitary etiology that would cause pain down 1 whole half of the body. That does not follow one solitary nerve root/nerve pathway. Did review possibility of occipital neuralgia from his symptoms stemming from the base of his head and top of his neck with those symptoms. Reviewed that he would maybe possibly need further evaluation with Neurology which I do not have here. He is alert and conversive at this time, daughter is by his side. We are waiting our imaging modalities to be read by Radiology. Time: 11:10 Reevaluation #2: Reviewed with patient and his daughter the normal labs. Chest x-ray is not showing any evidence of congestive heart failure. Patient wonders if I am just going to send him home, wonders if I can not put him in an [facility] I reviewed with him my legally cannot do that. I a have no indication for hospitalization at this time. I am not finding any infectious etiology. Will try some Tylenol 1000 mg orally. Initially it sounded as if they had not been giving him scheduled Tylenol but then later he stated Tylenol really has been of no benefit. He in any event does want some at this time. With not having any identifiable diagnosis outside of pain that is nontraumatic, I do not feel that there is an indication for hospitalization, I do not have anything further to evaluate or workup at this time. His daughter wondered if this could be the atrial fibrillation and I reviewed with her that it is doubtful. He is requesting that we just allow him to lay in the ER cart in dye. I reviewed with him that I am extremely sympathetic but I do not have a quick fix for him, I do not have any thing further to offer at this time. I did order 1000 mg oral Tylenol. I do recommend trying a course of scheduled Tylenol. If he is having further issues, I do think it may be beneficial for him to be seen at the [place] but there is no indication for transfer. We discussed pain management, worry about stronger pain medicines and somebody that is already demonstrating falling. We discussed that narcotics and muscle relaxants do carry increased risk for those over 65. I would favor scheduled Tylenol and close outpatient follow-up. Time: 14:11 Vital Signs Vital signs: Initial Vital Signs Respiratory Effort Spontaneous 04/11/22 09:57 Respiratory Depth Shallow 04/11/22 09:57 Respiratory Pattern 04/11/22 09:57 Pulse Oximetry 100 04/11/22 09:57 Vital Signs Pulse Oximetry 100 04/11/22 09:57 Temperature 97.2 F L 04/11/22 09:58 Pulse Rate 71 04/11/22 09:58 Respiratory Rate 18 04/11/22 09:58 Blood Pressure 166/84 H 04/11/22 09:58 Pulse Oximetry 97 04/11/22 09:58 Oxygen Delivery Method 04/11/22 09:58 Medical Decision Making Lab Data Lab results reviewed: Yes I reviewed the patient's lab results Labs: Lab Results 04/11/22 04/11/22 04/11/22 Range/Units 09:52 09:52 09:52 WBC 8.46 (4.50-11.00) K/uL RBC 4.85 (4.30-5.90) m/uL Hgb 14.1 (13.5-17.5) gm/dL Hct 42.7 (37.0-53.0) % MCV 88 (80-100) fL MCH 29 (26-34) pg MCHC 33 (32-36) gm/dL RDW Coeff of Gilbert 13.1 (11.5-15.5) % Plt Count 216 (140-440) K/uL Neut % (Auto) 74.2 H (42.0-72.0) % Lymph % (Auto) 15.0 L (20-44) % [place] % (Auto) 8.9 (0.0-11.0) % Eos % (Auto) 1.3 (0.0-7.0) % Baso % (Auto) 0.4 (0.0-3.0) % Neut # (Auto) 6.30 (1.7-7.0) K/uL Lymph # (Auto) 1.30 (0.90-2.90) K/uL [place] # (Auto) 0.80 (0.00-0.90) K/UL Eos # (Auto) 0.11 (0.00-0.50) K/uL Baso # (Auto) 0.03 (0.00-0.30) K/uL ESR 2 (2-15) mm/hr Sodium 136 (135-149) mmol/L Potassium 4.7 (3.6-5.1) mmol/L Chloride 108 (96-114) mmol/L Carbon Dioxide 17 L (20-32) mmol/L BUN 44 H (7-30) mg/dL Creatinine 1.6 H (0.5-1.5) mg/dL Estimated Creat Clear 36.75 Estimated GFR 43 ml/min Glucose 138 H (60-115) mg/dL Lactate (0.5-1.9) mmol/L Calcium 9.0 (8.4-10.6) mg/dL Magnesium (1.5-2.6) mg/dL Total Bilirubin 0.7 (0.1-1.5) mg/dL AST 25 (12-35) U/L ALT 21 (4-50) U/L Alkaline Phosphatase 82 (40-150) U/L Troponin I (0.01-0.04) ng/mL C-Reactive Protein < 0.5 L (0.5-1.0) mg/dL NT-Pro-B Natriuret Pep pg/mL Total Protein 7.2 (6.0-8.3) g/dL Albumin 4.3 (3.3-5.0) g/dL SARS-CoV-2 (PCR) (Negative) Influenza Type A (PCR) (Negative) Influenza Type B (PCR) (Negative) RSV (PCR) (Negative) POC Troponin I (0.01-0.04) ng/ml 04/11/22 04/11/22 04/11/22 Range/Units 09:52 09:52 09:52 WBC (4.50-11.00) K/uL RBC (4.30-5.90) m/uL Hgb (13.5-17.5) gm/dL Hct (37.0-53.0) % MCV (80-100) fL MCH (26-34) pg MCHC (32-36) gm/dL RDW Coeff of Gilbert (11.5-15.5) % Plt Count (140-440) K/uL Neut % (Auto) (42.0-72.0) % Lymph % (Auto) (20-44) % [place] % (Auto) (0.0-11.0) % Eos % (Auto) (0.0-7.0) % Baso % (Auto) (0.0-3.0) % Neut # (Auto) (1.7-7.0) K/uL Lymph # (Auto) (0.90-2.90) K/uL [place] # (Auto) (0.00-0.90) K/UL Eos # (Auto) (0.00-0.50) K/uL Baso # (Auto) (0.00-0.30) K/uL ESR (2-15) mm/hr Sodium (135-149) mmol/L Potassium (3.6-5.1) mmol/L Chloride (96-114) mmol/L Carbon Dioxide (20-32) mmol/L BUN (7-30) mg/dL Creatinine (0.5-1.5) mg/dL Estimated Creat Clear Estimated GFR ml/min Glucose (60-115) mg/dL Lactate 2.8 H (0.5-1.9) mmol/L Calcium (8.4-10.6) mg/dL Magnesium 2.3 (1.5-2.6) mg/dL Total Bilirubin (0.1-1.5) mg/dL AST (12-35) U/L ALT (4-50) U/L Alkaline Phosphatase (40-150) U/L Troponin I < 0.01 L (0.01-0.04) ng/mL C-Reactive Protein (0.5-1.0) mg/dL NT-Pro-B Natriuret Pep 5320 pg/mL Total Protein (6.0-8.3) g/dL Albumin (3.3-5.0) g/dL SARS-CoV-2 (PCR) Negative SARS-CoV-2 (Negative) Influenza Type A (PCR) Negative PCR FLU A (Negative) Influenza Type B (PCR) Negative PCR FLU B (Negative) RSV (PCR) Negative PCR RSV (Negative) POC Troponin I (0.01-0.04) ng/ml 04/11/22 04/11/22 Range/Units 10:14 12:52 WBC (4.50-11.00) K/uL RBC (4.30-5.90) m/uL Hgb (13.5-17.5) gm/dL Hct (37.0-53.0) % MCV (80-100) fL MCH (26-34) pg MCHC (32-36) gm/dL RDW Coeff of Gilbert (11.5-15.5) % Plt Count (140-440) K/uL Neut % (Auto) (42.0-72.0) % Lymph % (Auto) (20-44) % [place] % (Auto) (0.0-11.0) % Eos % (Auto) (0.0-7.0) % Baso % (Auto) (0.0-3.0) % Neut # (Auto) (1.7-7.0) K/uL Lymph # (Auto) (0.90-2.90) K/uL [place] # (Auto) (0.00-0.90) K/UL Eos # (Auto) (0.00-0.50) K/uL Baso # (Auto) (0.00-0.30) K/uL ESR (2-15) mm/hr Sodium (135-149) mmol/L Potassium (3.6-5.1) mmol/L Chloride (96-114) mmol/L Carbon Dioxide (20-32) mmol/L BUN (7-30) mg/dL Creatinine (0.5-1.5) mg/dL Estimated Creat Clear Estimated GFR ml/min Glucose (60-115) mg/dL Lactate (0.5-1.9) mmol/L Calcium (8.4-10.6) mg/dL Magnesium (1.5-2.6) mg/dL Total Bilirubin (0.1-1.5) mg/dL AST (12-35) U/L ALT (4-50) U/L Alkaline Phosphatase (40-150) U/L Troponin I (0.01-0.04) ng/mL C-Reactive Protein (0.5-1.0) mg/dL NT-Pro-B Natriuret Pep pg/mL Total Protein (6.0-8.3) g/dL Albumin (3.3-5.0) g/dL SARS-CoV-2 (PCR) (Negative) Influenza Type A (PCR) (Negative) Influenza Type B (PCR) (Negative) RSV (PCR) (Negative) POC Troponin I 0.01 0.01 (0.01-0.04) ng/ml Imaging Data Chest x-ray: Attestation: I have reviewed the pertinent imaging results. My impression: A my preliminary review, cardiomegaly, no significant congestive heart failure on my preliminary review. Did compare to the most recent chest x-ray which was a two-view in our system. Radiologist's impression: Patient: BRAVO BRUMFIELD Facility:?[facility] Patient ID:?[id number] Site Patient ID:?[id number]. Site :?[id number] Study:?XRay Chest 1 VIEW PORTABLE-04/11/2022 10:39:31 AM Ordering Physician:Vincenzo Driver Final Report: INDICATION: Congestive heart failure. TECHNIQUE: AP portable chest. COMPARISON: Two-view chest April 07, 2022. FINDINGS: Cardiac enlargement without overt failure. No pneumothorax. No focal or diffuse infiltrate. Old fracture deformity mid left clavicle. Degenerative change of the AC joints. IMPRESSION: Cardiac enlargement without overt failure. Dictated by Luis Ann MD @ 04/11/2022 10:41:25 AM (Electronic Signature) CT scan - head: Attestation: I have reviewed the pertinent imaging results. Radiologist's impression: Patient: BRAVO BRUMFIELD Facility:?[facility] Patient ID:?[id number] Site Patient ID:?[id number]. Site :?[id number] Study:?CT Head W/O-04/11/2022 10:51:17 AM Ordering Physician:?Milagro Driver Final Report: INDICATION: Fall. Severe headache and neck ache. TECHNIQUE: CT head without contrast. COMPARISON: August 19, 2021. FINDINGS: CSF spaces: Within normal limits for age. Brain parenchyma and extra-axial spaces: The choi-white differentiation is normal. No sign of mass, hemorrhage, or midline shift. No extra-axial fluid collection. Skull base and calvarium: The visualized paranasal sinuses and mastoid air cells demonstrate no acute or significant findings. The visualized orbits are grossly unremarkable. No skull fractures. IMPRESSION: Unremarkable noncontrast head CT. Please note that all CT scans at this facility use dose modulation, iterative reconstruction, and/or weight-based dosing when appropriate to reduce radiation dose to as low as reasonably achievable. Dictated by Jacky Arvizu MD @ 04/11/2022 11:32:46 AM (Electronic Signature) CT- Other: Attestation: I have reviewed the pertinent imaging results. Radiologist's impression: Patient: BRAVO BRUMFIELD Facility:?[facility] Patient ID:?[id number] Site Patient ID:?[id number]. Site :?[id number] Study:?CT Spine Cervical W/O-04/11/2022 10:51:41 AM Ordering Physician:?Milagro Driver Final Report: INDICATION: Fall with severe headache. TECHNIQUE: CT cervical spine without contrast. COMPARISON: 01/23/2022. FINDINGS: Vertebrae: Alignment is normal. There are no fractures or suspicious bony lesions. Discs and facet joints: There are degenerative disc changes most severe at C5-6 and C6-7. There are multilevel degenerative changes in the facets. Extraspinal findings: Paraspinous soft tissues are unremarkable. IMPRESSION: 1. No sign of acute injury. 2. Multilevel degenerative spondylosis. Please note that all CT scans at this facility use dose modulation, iterative reconstruction, and/or weight-based dosing when appropriate to reduce radiation dose to as low as reasonably achievable. Dictated by Jacky Arvizu MD @ 04/11/2022 11:40:21 AM (Electronic Signature) ECG Data Attestation: I personally reviewed and interpreted this ECG as follows: (Atrial fibrillation, 64 beats per minute. No ischemia noted.) Critical Care Time Critical Care Time Critical Care Time: No Discharge Plan Discharge Clinical Impression: Headache, Neck pain Patient Disposition: Home, Self-Care Condition: Stable Instructions: General Headache (ED), Neck Pain (ED) Additional Instructions: Recommend scheduled Tylenol 1000 mg 3 to 4 times a day and try for 5-7 days. Need to follow-up with your primary care provider as soon as possible. I do wonder if you might need to see Neurology for the headaches and neck pain. I wonder if it could be a condition such as occipital neuralgia or a headache syndrome that involves both the neck and the head. Your inflammatory markers, laboratory evaluation, head and neck CT are not showing any emergent or acute condition that require further intervention at this time. Activity Level: Activity as Tolerated Prescriptions: No Action levetiracetam [Keppra] 500 mg tablet 500 mg PO Q12H Label Comments: 1 tablet by mouth twice a day cyanocobalamin (vitamin B-12) [Vitamin B-12] 1,000 mcg tablet 1,000 mcg PO DAILY Label Comments: 1 tablet by mouth once a day spironolactone 25 mg tablet 12.5 mg PO DAILY Label Comments: 12.5 mg by mouth once a day captopril 12.5 mg tablet 12.5 mg PO BID aspirin 325 mg tablet,delayed release (DR/EC) 325 mg PO DAILY Label Comments: 1 tablet by mouth once a day ferrous sulfate 325 mg (65 mg iron) tablet 325 mg PO DAILY Label Comments: 1 tablet by mouth once a day nitroglycerin 0.4 mg tablet, sublingual 0.8 mg sublingual Q5M PRN Label Comments: 1 tablet under tongue as needed folic acid 1 mg tablet 1 mg PO DAILY Label Comments: 1 tablet by mouth once a day albuterol sulfate 90 mcg/actuation HFA aerosol inhaler 2 puff INHALATION Q4H PRN (Reason: bronchospasm) Label Comments: 2 puff using inhaler every four hours as needed fluticasone propionate 50 mcg/actuation spray,suspension 1 spray INTRANASAL DAILY Label Comments: 1 spray into both nostrils once a day [place] Nasal 0.65 % aerosol,spray 1 spray INTRANASAL Q12H Label Comments: 1 spray into both nostrils twice a day Rx Instructions: takes at 8am, 8pm budesonide-formoterol [Symbicort] 160-4.5 mcg/actuation HFA aerosol inhaler 2 puff INHALATION Q12H Label Comments: 2 puff using inhaler twice a day Jardiance 25 mg tablet 12.5 mg PO DAILY Label Comments: 12.5 mg by mouth once a day lidocaine 5 % adhesive patch,medicated 3 patch topical DAILY Rx Instructions: leave on most painful area for up to 12 hrs acetaminophen 500 mg tablet 1,000 mg PO TID Label Comments: 1000 mg by mouth three times a day Rx Instructions: takes at 8am, 2pm, 8pm triamcinolone acetonide 0.1 % lotion 1 applic topical BID PRN Rx Instructions: ITCHY LEGS diclofenac sodium 1 % gel 2 g topical Q6H PRN Rx Instructions: apply to single elbow, wrist or hand; for hand includes palm/fingers/back of hand venlafaxine 50 mg tablet 25 mg PO TID@08,12,20 omeprazole 20 mg capsule,delayed release(DR/EC) 20 mg PO DAILY melatonin 3 mg capsule 3 mg PO HS methocarbamol 500 mg tablet 500 mg PO TID PRN calcitonin (salmon) 200 unit/actuation spray,non-aerosol 1 spray intranasal (ALT) DAILY gabapentin 100 mg capsule 200 mg PO HS guaifenesin [Chest Congestion Relief] 100 mg/5 mL liquid 200 mg PO Q4H PRN torsemide 20 mg Tablet 20 mg PO DAILY@0800 30 Days Qty: 30 0RF methimazole 5 mg Tablet 10 mg PO DAILY 30 Days Qty: 60 0RF metoprolol succinate 25 mg Tablet Extended Release 24 Hr 12.5 mg PO DAILY 30 Days Qty: 15 1RF Follow Up/Referrals: Provider,Not a Local [Referring] - Stand Alone Forms: MyHealth Info Instructions
--- NOTE | 2022-04-11 09:58 | CRLHL7_ITS ---
For Patients: As a result of the Cures Act, medical imaging exams and procedure reports are released immediately into your electronic medical record. You may view this report before your referring provider. If you have questions, please contact your health care provider. INDICATION: Fall with severe headache. TECHNIQUE: CT cervical spine without contrast. COMPARISON: 01/23/2022. FINDINGS: Vertebrae: Alignment is normal. There are no fractures or suspicious bony lesions. Discs and facet joints: There are degenerative disc changes most severe at C5-6 and C6-7. There are multilevel degenerative changes in the facets. Extraspinal findings: Paraspinous soft tissues are unremarkable. IMPRESSION: 1. No sign of acute injury. 2. Multilevel degenerative spondylosis. Please note that all CT scans at this facility use dose modulation, iterative reconstruction, and/or weight-based dosing when appropriate to reduce radiation dose to as low as reasonably achievable. Dictated by Jacky Arvizu MD @ 04/11/2022 11:40:21 AM (Electronically Signed)
--- NOTE | 2022-04-11 09:58 | CRLHL7_ITS ---
For Patients: As a result of the Century Cures Act, medical imaging exams and procedure reports are released immediately into your electronic medical record. You may view this report before your referring provider. If you have questions, please contact your health care provider. INDICATION: Fall. Severe headache and neck ache. TECHNIQUE: CT head without contrast. COMPARISON: August 19, 2021. FINDINGS: CSF spaces: Within normal limits for age. Brain parenchyma and extra-axial spaces: The choi-white differentiation is normal. No sign of mass, hemorrhage, or midline shift. No extra-axial fluid collection. Skull base and calvarium: The visualized paranasal sinuses and mastoid air cells demonstrate no acute or significant findings. The visualized orbits are grossly unremarkable. No skull fractures. IMPRESSION: Unremarkable noncontrast head CT. Please note that all CT scans at this facility use dose modulation, iterative reconstruction, and/or weight-based dosing when appropriate to reduce radiation dose to as low as reasonably achievable. Dictated by Jacky Arvizu MD @ 04/11/2022 11:32:46 AM (Electronically Signed)
--- NOTE | 2022-04-11 09:58 | XR_ITS ---
Patient: BRAVO BRUMFIELD Facility:?[facility] Patient ID:?[id number] Site Patient [id number]:?[id number]. Site :?[id number] Study:?XRay-Chest 1 VIEW PORTABLE-04/11/2022 10:39:31 AM Ordering Physician:Vincenzo Driver Final Report: INDICATION: Congestive heart failure. TECHNIQUE: AP portable chest. COMPARISON: Two-view chest April 07, 2022. FINDINGS: Cardiac enlargement without overt failure. No pneumothorax. No focal or diffuse infiltrate. Old fracture deformity mid left clavicle. Degenerative change of the AC joints. IMPRESSION: Cardiac enlargement without overt failure. Dictated by Luis Ann MD @ 04/11/2022 10:41:25 AM Signed by:?Luis Ann MD @04/11/2022 10:41:25 AM (Electronic Signature)
[2022-04-11 10:09] LABS: Lactate* 2.8 mmol/L (0.5-1.9)
[2022-04-11 10:13] LABS: Basophils Absolute Auto 0.03 K/uL (0.00-0.30); Basophils Percent Auto 0.4 % (0.0-3.0); Eosinophils Absolute Auto 0.11 K/uL (0.00-0.50); Eosinophils Percent Auto 1.3 % (0.0-7.0); Hematocrit 42.7 % (37.0-53.0); Hemoglobin* 14.1 gm/dL (13.5-17.5); Immature Granulocytes Abs Auto 0.02 K/uL (0.00-0.30); Immature Granulocytes Pct Auto 0.2 %; Mean Corpuscular HGB Conc 33 gm/dL (32-36); Mean Corpuscular Hemoglobin 29 pg (26-34); Mean Corpuscular Volume 88 fL (80-100); Monocytes Percent Auto 8.9 % (0.0-11.0); Neutrophils Percent Auto 74.2 % (42.0-72.0); Platelet Count* 216 K/uL (140-440); RDW Coefficient of Variation % 13.1 % (11.5-15.5); Red Blood Count 4.85 m/uL (4.30-5.90); White Blood Count* 8.46 K/uL (4.50-11.00)
[2022-04-11 10:14] LABS: Troponin, Point-of-Care* 0.01 ng/ml (0.01-0.04)
[2022-04-11 10:26] LABS: Slide Review Reflex No
[2022-04-11 10:39] LABS: Albumin* 4.3 g/dL (3.3-5.0); Chloride* 108 mmol/L (96-114); Sodium* 136 mmol/L (135-149)
[2022-04-11 10:40] LABS: Potassium* 4.7 mmol/L (3.6-5.1)
[2022-04-11 10:41] LABS: Creatinine* 1.6 mg/dL (0.5-1.5); Est. Creatinine Clearance* 36.75; Estimated Glomerular Filt Rate 43 ml/min; Magnesium* 2.3 mg/dL (1.5-2.6)
[2022-04-11 10:42] LABS: Alanine Aminotransferase* 21 U/L (4-50); Alkaline Phosphatase* 82 U/L (40-150); Aspartate Amino Transferase* 25 U/L (12-35); Bilirubin Total* 0.7 mg/dL (0.1-1.5); Blood Urea Nitrogen* 44 mg/dL (7-30); Carbon Dioxide* 17 mmol/L (20-32); Glucose* 138 mg/dL (60-115); Total Protein* 7.2 g/dL (6.0-8.3)
[2022-04-11 10:51] LABS: NT Pro B Type NatriureticPept* 5320 pg/mL
[2022-04-11 10:55] LABS: C Reactive Protein* < 0.5 mg/dL (0.5-1.0); PCR FLU A Negative PCR FLU A (Negative); PCR FLU B Negative PCR FLU B (Negative); PCR RSV Negative PCR RSV (Negative)
[2022-04-11 10:59] LABS: Troponin I* < 0.01 ng/mL (0.01-0.04)
--- NOTE | 2022-04-11 10:59 | PC.NURSE ---
Madan complaining of pain from shoulder down to foot- MD notified.
[2022-04-11 11:00] LABS: SARS PCR* Negative SARS-CoV-2 (Negative)
[2022-04-11 11:11] LABS: Erythrocyte SedimentationRate* 2 mm/hr (2-15)
[2022-04-11 13:06] LABS: Troponin, Point-of-Care* 0.01 ng/ml (0.01-0.04)
[2022-04-11] MEDS: ACETAMINOPHEN 500 MG TABLET 1000 MG PO (14:28)
== END 2022-04-11 14:41 | disposition home or self-care (01) ==
PROVIDERS: Emergency Provider Family Medicine; PCP Internal Medicine
DX: R51.9 Headache, unspecified (principal); M54.2 Cervicalgia
CPT/HCPCS: 36415; 70450; 71045; 72125; 80053; 83605; 83735; 83880; 84484; 85025; 85651; 86140; 87502; 87634; 87635; 93005; 94761; 99284; 99285; A9270

== ENCOUNTER 2022-05-08 19:28 | Outpatient (CLI) | payer OTHER, SELFPAY | END 2022-05-08 19:29 | disposition home or self-care (01) | PROVIDERS: PCP Internal Medicine; Visit Provider Emergency Medicine | DX: I46.9 Cardiac arrest, cause unspecified (principal) | CPT/HCPCS: A0429 ==